=== PATIENT | female | born 1950 | race Caucasian/White ===

== ENCOUNTER 2016-09-22 16:50 | Observation (INO) | payer BC ==
--- NOTE | 2016-09-22 17:01 | PCM.HP ---
H&P History of Present Illness - General Date of Service: 09/22/16 Source of Information: Patient, Family, Provider, RN - History of Present Illness Initial Comments - Free Text/Narative: I received a call from , her primary care physician today regarding this patient. She was noted in the clinic to have a hemoglobin of 6.8 g. She was symptomatic in that she felt weak tired, has a headache, and feels slightly dyspneic. She said when she woke up this morning she had some slight numbness in her left arm the resolved after several hours. An EKG was done in the office today which was read as normal. She has had black stools but always has black stools as she takes iron. Her physician advised me that the patient has an elevated reticulocyte count a low iron level and B12 and folate levels are pending. She has a prior history of gastrointestinal bleeding 2 months ago. At that time she had upper and lower endoscopy by . She has been on omeprazole 20 mg per day. had planned to do an outpatient blood transfusion but called me because the blood will not be available until tomorrow. The patient feels too weak to go home. - Related Data Allergies/Adverse Reactions: Allergies Allergy/AdvReac Type Severity Reaction Status Date / Time Anesthetics - Amide Type Allergy Cardiac Verified 07/02/16 07:48 Arrest hydrochlorothiazide Allergy Hives Verified 07/02/16 07:48 [From Zestoretic] lisinopril Allergy Hives Verified 07/02/16 07:48 methadone [Methadone] Allergy Hives Verified 07/02/16 07:48 propoxyphene Allergy Hives Verified 07/02/16 07:48 Breads Allergy Hives Uncoded 07/02/16 07:48 FRUITS except peaches & Allergy Hives Uncoded 07/02/16 07:48 grapes Leafy vegetables (all) Allergy Hives Uncoded 07/02/16 07:48 Soil Allergy Hives Uncoded 07/02/16 07:48 Trees Allergy Hives Uncoded 07/02/16 07:48 Home Medications: Home Meds Beclomethasone Dipropionate [Qvar] 8.7 gm IH BID 07/02/16 [History] Chlorthalidone 0.5 tab PO DAILY 07/02/16 [History] Levothyroxine [Synthroid] 50 mcg PO ACBREAKFAST 07/02/16 [History] atorvaSTATin [Lipitor] 40 mg PO BEDTIME 07/02/16 [History] traMADol [Ultram] 50 mg PO Q6H PRN 07/02/16 [History] Albuterol [Ventolin HFA] 1 - 2 puff INH ASDIRECTED PRN 07/12/16 [History] Mometasone Furoate [Nasonex] 1 spray NASBOTH DAILY 07/13/16 [History] Omeprazole 20 mg PO DAILY 07/13/16 [History] Past Medical History - Past Health History Medical/Surgical History: Denies Medical/Surgical History HEENT History: Reports: Hard of hearing Other HEENT History: wears glasses, has top & bottom denture, Cardiovascular History: Reports: Hypertension. 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 She is currently under the care of an calibration checker and is on an ongoing program of desensitization therapy) Oncologic (Cancer) History: Reports: Other (see below) Other Oncologic History: skin cancer Dermatologic History: Reports: Eczema Other Dermatologic History: skin cancer - Infectious Disease History Infectious Disease History: Reports: Chicken pox, Measles, Mumps - Past Surgical History HEENT Surgical History: Reports: Tonsillectomy Other HEENT Surgeries/Procedures: PLastic surgery on nose Respiratory Surgical History: Reports: None GI Surgical History: Reports: Appendectomy, Colonoscopy, EGD, Other (see below) Other GI Surgeries/Procedures: "they say my insides look like hamburger" Female Surgical History: Reports: D&C Social & Family History - Family History Family Medical History: Noncontributory - Tobacco Use Smoking Status *Q: Former Smoker (quit 4 years ago) Years of Tobacco use: 40 Packs/Tins Daily: 1 Used Tobacco, but Quit: Yes Month Tobacco Last Used: quit smoking 4 yrs ago Second Hand Smoke Exposure: No - Caffeine Use Caffeine Use: Reports: Coffee, Soda - Alcohol Use Days Per Week of Alcohol Use: 0 Alcohol Use Comment: Rare alcohol use. Last drink was more than 2 weeks ago. - Recreational Drug Use Recreational Drug Use: No Drug Use in Last 12 Months: No H&P Review of Systems - Review of Systems: Review Of Systems: See Below General: Denies: fever HEENT: Reports: headaches (Chronic) Pulmonary: Reports: Shortness of Breath. Denies: Cough, Sputum Cardiovascular: Denies: chest pain Gastrointestinal: Reports: Abdominal pain (Mild epigastric pain), Black stool. Denies: Bloody stool, Hematochezia, Vomiting Genitourinary: Denies: dysuria, frequency, burning, hematuria Musculoskeletal: Reports: arm pain Skin: Reports: other (She has been pale). Denies: jaundice ( as per history of present illness) Psychiatric: Denies: confusion, depression Exam - Exam Exam: See Below - Vital Signs Weight: 93 kg - Exam General: alert, oriented HEENT: EOMI, Other (Pale conjunctiva) Lungs: Clear to auscultation, Normal respiratory effort Cardiovascular: regular rate, regular rhythm Abdomen: soft, tenderness (Mild epigastric) Rectal (Female) Exam: Deferred Neurological: cranial nerves intact, normal speech Neuro Extensive - Mental Status: alert Neuro Extensive - Motor, Sensory, Reflexes: CN II-XII intact. No: facial palsy (L), facial palsy (R) *Q Meaningful Use (ADM) - VTE *Q VTE Criteria *Q: - Stroke *Q Stroke Criteria *Q: - AMI *Q AMI Criteria *Q: - Problem List (1) Anemia SNOMED Code(s): 858117734 ICD Code: D64.9 - ANEMIA, UNSPECIFIED Status: Acute Current Visit: No Qualifiers: Anemia type: other cause Other causes of anemia: other cause, not classified Qualified Code(s): D64.89 - Other specified anemias (2) Hx of gastritis SNOMED Code(s): 947346681765155 ICD Code: Z87.19 - PERSONAL HISTORY OF OTHER DISEASES OF THE DIGESTIVE SYSTEM Status: Chronic Current Visit: No Problem List Initiated/Reviewed/Updated: Yes Assessment/Plan Comment:: See orders. I discussed case with who is on-call for general surgery. Dr. Garcia will be available to see the patient if she gets worse over the weekend. He has an appointment to see her on Sunday the
[2016-09-22] MEDS ORDERED: Bisacodyl 5 MG Tab PO PRN (18:53)
[2016-09-22] MEDS ORDERED: Ondansetron 4 MG Tab.DIS PO PRN (18:53)
[2016-09-22] MEDS ORDERED: Temazepam 15 MG Cap PO PRN (18:53)
[2016-09-22] MEDS ORDERED: Acetaminophen 325 MG Tab PO PRN (18:53)
[2016-09-22] MEDS ORDERED: Sodium Chloride 0.9% 10 ML Syringe FLUSH PRN (18:53)
[2016-09-22] MEDS ORDERED: Sodium Chloride 0.9% 2.5 ML Syringe FLUSH PRN (18:53)
[2016-09-22] MEDS ORDERED: Albuterol 8 GM Inhaler INH PRN (19:00)
[2016-09-22] MEDS ORDERED: Furosemide 40 MG/4 ML VIAL IVPUSH PRN (19:01)
[2016-09-22] MEDS ORDERED: Ketorolac 30 MG/ML SDV IVPUSH PRN (19:14)
[2016-09-22] MEDS ORDERED: Acetaminophen 325 MG/10.15 ML ML PO PRN (19:16)
[2016-09-22 20:11] LABS: CHLORIDE,CL 99 mmol/L (98-110); SODIUM,NA 132 mmol/L (136-146)
[2016-09-22] MEDS: Sucralfate Suspension 1 GM/10 ML Cup PO SCH (20:25)
[2016-09-23] MEDS ORDERED: Potassium Chloride 20 MEQ Tab.ER PO ONE (05:25)
[2016-09-23] MEDS: Sucralfate Suspension 1 GM/10 ML Cup PO SCH ×2 (06:30→10:59)
[2016-09-23 06:45] LABS: CHLORIDE,CL 107 mmol/L (98-110); SODIUM,NA 140 mmol/L (136-146)
[2016-09-23] MEDS ORDERED: Omeprazole 20 MG Cap.CR PO SCH (07:30)
[2016-09-23] MEDS ORDERED: Levothyroxine 50 MCG Tab PO SCH (07:30)
[2016-09-23] MEDS ORDERED: Mometasone Furoate Nasal Spray 17 GM Canister NASBOTH SCH (09:00)
[2016-09-23] MEDS: BECLOMETHASONE DIPROPIONATE 8.7 GM INH SCH (09:19)
[2016-09-23] MEDS ORDERED: Fluticasone Propionate Nasal Spray 16 GM Bottle NASBOTH SCH (09:25)
[2016-09-23 11:48] VITALS: BP 131/58
--- NOTE | 2016-09-23 13:30 | PCM.DCSUM1 ---
Discharge Summary - Hospital Course Brief History: She was admitted with a hemoglobin of 6.5. She was admitted at the request of for blood transfusion. - Discharge Data Discharge Date: 09/23/16 Discharge Disposition: Home, Self-Care 01 Condition: Good - Discharge Diagnosis/Problem(s) (1) Anemia SNOMED Code(s): 304928635 ICD Code: D64.9 - ANEMIA, UNSPECIFIED Status: Acute Current Visit: No Qualifiers: Anemia type: other cause Other causes of anemia: other cause, not classified Qualified Code(s): D64.89 - Other specified anemias (2) Hx of gastritis SNOMED Code(s): 752648978672267 ICD Code: Z87.19 - PERSONAL HISTORY OF OTHER DISEASES OF THE DIGESTIVE SYSTEM Status: Chronic Current Visit: No - Patient Summary/Data Hospital Course: She was given 2 units of packed red blood cells. Her posttransfusion hemoglobin is 9.2. At discharge she no longer has epigastric abdominal tenderness. Her omeprazole dose was increased to 40 mg twice a day and Carafate solution 1 g a.c. and at bedtime was also added to her regimen. Hemoccult of the stool was positive. She feels better at discharge and feels ready to go home. Dr. Felipe was consulted over the phone. He has an appointment arranged to see the patient on Sunday. - Discharge Plan Home Medications: Home Meds Beclomethasone Dipropionate [Qvar] 8.7 gm IH BID 07/02/16 [History] Levothyroxine [Synthroid] 50 mcg PO ACBREAKFAST 07/02/16 [History] traMADol [Ultram] 50 mg PO Q6H PRN 07/02/16 [History] Albuterol [Ventolin HFA] 1 - 2 puff INH ASDIRECTED PRN 07/12/16 [History] Mometasone Furoate [Nasonex] 1 spray NASBOTH DAILY 07/13/16 [History] Omeprazole 20 mg PO DAILY 07/13/16 [History] Patient Handouts: Anemia, Nonspecific Referrals: Chapito Felipe MD [Physician] - 09/25/16 9:15 am Irina Jean Baptiste MD [Physician] - (Please call [facility] on Sunday morning to set up a hospital follow up appointment within 1 week.) - Patient Data Vitals - Most Recent: Last Vital Signs Temp 98.2 F 09/23/16 11:47 Pulse 87 09/23/16 11:47 Resp 22 H 09/23/16 11:47 BP 131/58 L 09/23/16 11:47 Pulse Ox 96 09/23/16 11:47 Weight - Most Recent: 93 kg I&O - Last 24 hours: Intake & Output 09/22/16 09/23/16 09/23/16 22:59 06:59 14:59 Intake Total 270 1319 Output Total 4750 Balance 270 -4371 Lab Results - Last 24 hrs: Laboratory Results - last 24 hr 09/22/16 09/22/16 09/22/16 Range/Units 11:00 19:39 19:39 WBC 9.62 (4.0-11.0) K/uL RBC 2.78 L (4.30-5.90) M/uL Hgb 6.5 L (12.0-16.0) g/dL Hct 22.4 L (36.0-46.0) % MCV 80.6 (80.0-98.0) fL MCH 23.4 L (27.0-32.0) pg MCHC 29.0 L (31.0-37.0) g/dL RDW Std Deviation 61.2 (28.0-62.0) fl RDW Coeff of Mary 21 H (11.0-15.0) % Plt Count 339 (150-400) K/uL MPV 10.30 (7.40-12.00) fL Neut % (Auto) 73.9 (48.0-80.0) % Lymph % (Auto) 15.8 L (16.0-40.0) % Fajardo % (Auto) 7.9 (0.0-15.0) % Eos % (Auto) 2.0 (0.0-7.0) % Baso % (Auto) 0.4 (0.0-1.5) % Neut # (Auto) 7.1 H (1.4-5.7) K/uL Lymph # (Auto) 1.5 (0.6-2.4) K/uL Fajardo # (Auto) 0.8 (0.0-0.8) K/uL Eos # (Auto) 0.2 (0.0-0.7) K/uL Baso # (Auto) 0.0 (0.0-0.1) K/uL Nucleated RBC % 0.4 /100WBC Nucleated RBCs # 0 K/uL Sodium 132 L (136-146) mmol/L Potassium 3.3 L (3.5-5.1) mmol/L Chloride 99 (98-110) mmol/L Carbon Dioxide 24 (21-31) mmol/L BUN 9 (6.0-23.0) mg/dL Creatinine 0.9 (0.6-1.5) mg/dL Est Cr Clr Drug Dosing 56.82 mL/min Estimated GFR (MDRD) > 60.0 ml/min Glucose 104 (60-110) mg/dL Calcium 8.6 L (8.8-10.8) mg/dL Magnesium 1.4 L (1.5-2.3) mEq/L Total Bilirubin 0.4 (0.1-1.5) mg/dL AST 13 (5-40) IU/L ALT 10 (8-54) IU/L Alkaline Phosphatase 60 (40-150) Total Protein 6.0 (6.0-8.0) g/dL Albumin 3.4 (3.4-4.8) g/dL Globulin 2.6 (2.0-3.5) g/dL Albumin/Globulin Ratio 1.3 (1.3-2.8) Blood Type O POSITIVE Antibody Screen POSITIVE Antibody Identification Anti-c Antigen Typing c Antigen - NEGATIVE Crossmatch See Detail 09/23/16 09/23/16 Range/Units 05:45 05:45 WBC 8.33 (4.0-11.0) K/uL RBC 3.60 L (4.30-5.90) M/uL Hgb 9.2 L (12.0-16.0) g/dL Hct 29.6 L (36.0-46.0) % MCV 82.2 (80.0-98.0) fL MCH 25.6 L (27.0-32.0) pg MCHC 31.1 (31.0-37.0) g/dL RDW Std Deviation 56.1 (28.0-62.0) fl RDW Coeff of Mary 19 H (11.0-15.0) % Plt Count 337 (150-400) K/uL MPV 10.70 (7.40-12.00) fL Neut % (Auto) 67.2 (48.0-80.0) % Lymph % (Auto) 18.6 (16.0-40.0) % F[place]ardo % (Auto) 10.6 (0.0-15.0) % Eos % (Auto) 3.0 (0.0-7.0) % Baso % (Auto) 0.6 (0.0-1.5) % Neut # (Auto) 5.6 (1.4-5.7) K/uL Lymph # (Auto) 1.6 (0.6-2.4) K/uL Fajardo # (Auto) 0.9 H (0.0-0.8) K/uL Eos # (Auto) 0.3 (0.0-0.7) K/uL Baso # (Auto) 0.1 (0.0-0.1) K/uL Nucleated RBC % 0.3 /100WBC Nucleated RBCs # 0 K/uL Sodium 140 (136-146) mmol/L Potassium 3.9 (3.5-5.1) mmol/L Chloride 107 (98-110) mmol/L Carbon Dioxide 24 (21-31) mmol/L BUN 12 (6.0-23.0) mg/dL Creatinine 0.9 (0.6-1.5) mg/dL Est Cr Clr Drug Dosing 56.73 mL/min Estimated GFR (MDRD) > 60.0 ml/min Glucose 99 (60-110) mg/dL Calcium 9.2 (8.8-10.8) mg/dL Magnesium (1.5-2.3) mEq/L Total Bilirubin (0.1-1.5) mg/dL AST (5-40) IU/L ALT (8-54) IU/L Alkaline Phosphatase (40-150) Total Protein (6.0-8.0) g/dL Albumin (3.4-4.8) g/dL Globulin (2.0-3.5) g/dL Albumin/Globulin Ratio (1.3-2.8) Blood Type Antibody Screen Antibody Identification Antigen Typing Crossmatch SAM Results - Last 24 hrs: Microbiology 09/23/16 10:40 Stool Occult Blood (SAM) - Final Stool / Feces - Stool, Formed POSITIVE OCCULT BLOOD Med Orders - Current: Current Medications Acetaminophen (Tylenol) 650 mg PO Q4H PRN PRN Reason: Pain (Mild 1-3)/fever Acetaminophen (Tylenol) 600 mg PO Q4H PRN PRN Reason: Pain Last Admin: 09/22/16 20:24 Dose: 600 mg Albuterol (Ventolin Hfa) 0 gm INH ASDIRECTED PRN PRN Reason: Shortness of Breath Bisacodyl (Dulcolax) 5 mg PO DAILY PRN PRN Reason: Constipation Fluticasone Propionate (Flonase) 0 gm NASBOTH DAILY [facility] Last Admin: 09/23/16 09:28 Dose: 1 spray Furosemide (Lasix) 40 mg IVPUSH Q12H PRN PRN Reason: Other Ketorolac Tromethamine (Toradol) 30 mg IVPUSH Q6H PRN PRN Reason: Pain Levothyroxine Sodium (Synthroid) 50 mcg PO ACBREAKFAST [facility] Last Admin: 09/23/16 06:30 Dose: 50 mcg Omeprazole (Omeprazole) 40 mg PO BIDAC [facility] Last Admin: 09/23/16 06:30 Dose: 40 mg Ondansetron HCl (Zofran Odt) 4 mg PO Q4H PRN PRN Reason: nausea, able to take PO Beclomethasone Dipropionate [Qvar] 8.7 Gm 1 each INH BID [facility] Last Admin: 09/23/16 09:19 Dose: 1 each Sodium Chloride (Saline Flush) 10 ml FLUSH ASDIRECTED PRN PRN Reason: Keep Vein Open Sodium Chloride (Saline Flush) 2.5 ml FLUSH ASDIRECTED PRN PRN Reason: Keep Vein Open Sucralfate (Carafate) 1 gm PO QIDACANDBED [facility] Last Admin: 09/23/16 10:59 Dose: 1 gm Temazepam (Restoril) 15 mg PO BEDTIME PRN PRN Reason: Sleep Discontinued Medications Mometasone Furoate (Nasonex Rolfe) 0 gm NASBOTH DAILY [facility] Last Admin: 09/23/16 09:41 Dose: Not Given Potassium Chloride (Klor-Con M20) 40 meq PO ONETIME ONE Stop: 09/23/16 05:26 Last Admin: 09/23/16 05:33 Dose: 40 meq *Q Meaningful Use (DIS) - VTE *Q VTE Criteria *Q: - Stroke *Q Stroke Criteria *Q: - AMI *Q AMI Criteria *Q:
== END 2016-09-23 13:55 | disposition home or self-care (01) ==
LOC: UNDOADMOB 16:50 → MW.MS 16:50
PROVIDERS: ADMIT Family Medicine; ATTEND Family Medicine
DX: D64.9 Anemia, unspecified (principal); I10 Essential (primary) hypertension; J45.909 Unspecified asthma, uncomplicated; K21.9 Gastro-esophageal reflux disease without esophagitis; E03.9 Hypothyroidism, unspecified; Z87.19 Personal history of other diseases of the digestive system; Z79.51 Long term (current) use of inhaled steroids; Z79.899 Other long term (current) drug therapy; Z88.4 Allergy status to anesthetic agent; Z88.5 Allergy status to narcotic agent; Z88.8 Allergy status to other drugs, medicaments and biological substances; Z91.018 Allergy to other foods; Z91.048 Other nonmedicinal substance allergy status; Z87.891 Personal history of nicotine dependence; Z86.010 Personal history of colon polyps; Z90.49 Acquired absence of other specified parts of digestive tract; Z90.89 Acquired absence of other organs; Z98.890 Other specified postprocedural states
CPT/HCPCS: 36415; 36430; 80048; 80053; 82272; 82607; 82728; 82746; 83550; 83735; 85025; 85027; 85045; 86850; 86870; 86900; 86901; 86902; 86920; 86921; 86922; 93005; A9270; G0378; P9016

== ENCOUNTER → 2016-10-03 | Outpatient (CLI) | payer BC ==
[2016-10-03 15:48] LABS: CHLORIDE,CL 110 mmol/L (98-110); SODIUM,NA 141 mmol/L (136-146)
== END ==
LOC: MW.CHFP 14:58
PROVIDERS: ATTEND Family Medicine
DX: D64.9 Anemia, unspecified (principal); R73.9 Hyperglycemia, unspecified; E87.6 Hypokalemia
CPT/HCPCS: 36415; 80053; 82607; 82728; 82746; 83036; 83550; 85027; 85045

== ENCOUNTER 2018-02-28 14:39 | Emergency (ER) | payer MEDICARE, BC ==
[2018-02-28 14:56] VITALS: BP 153/70
[2018-02-28] MEDS ORDERED: Sodium Chloride 0.9% 2.5 ML Syringe FLUSH PRN (15:02)
[2018-02-28] MEDS ORDERED: Morphine 2 MG/ML Syringe IVPUSH ONE (15:02)
[2018-02-28] MEDS ORDERED: Sodium Chloride 0.9% 10 ML Syringe FLUSH PRN (15:02)
[2018-02-28] MEDS ORDERED: Ondansetron 4 MG/2 ML SDV IVPUSH ONE (15:02)
--- NOTE | 2018-02-28 15:05 | EDM.PDOC ---
ED HPI GENERAL MEDICAL PROBLEM - General Chief Complaint: Back Pain or Injury Stated Complaint: BACK PAIN Time Seen by Provider: 02/28/18 15:03 Source of Information: Reports: Patient History Limitations: Reports: No Limitations - History of Present Illness INITIAL COMMENTS - FREE TEXT/NARRATIVE: HISTORY AND PHYSICAL: []67-year-old female presenting with mid back pain extending down to her hip on the right History of Present Illness: she states she was picking up a safe and felt something pop and went down to her knees and has had pain since Chronic anemia with for which she receives iron transfusions in the cancer [facility] Review of Systems: As per history of present illness and below otherwise all systems reviewed and negative. Past medical history: As per history of present illness and as reviewed below otherwise noncontributory. Surgical history: As per history of present illness and as reviewed below otherwise noncontributory. Social history: No reported history of drug or alcohol abuse. Family history: As per history of present illness and as reviewed below otherwise noncontributory. Physical exam: Alert and oriented female answering questions appropriately in full sentences without any shortness of breath. Skin is warm and dry intact. Patient did walk into the exam room. HEENT: Atraumatic, normocehpalic, pupils reactive, negative for conjunctival pallor or scleral icterus, mucous membranes moist, throat clear, neck supple, nontender, trachea midline. Lungs: Clear to auscultation, breath sounds equal bilaterally, chest non tender. Heart: S1S2, regular, negative for clicks, rubs, or JVD. Abdomen: Soft, nondistended, nontender. Negative for masses or hepatossplenmegaly. Negative for costovertebral tenderness. Pelvis: Stable nontender. Genitourinary: Deferred. Rectal: Deferred Extremities: Atraumatic, negative for cords or calf pain. Neurovascular unremarkable. Neuro: Awake, alert, oriented. Cranial nerves II through XII unremarkable. Cerebellum unremarkable. Motor and sensory unremarkable throughout. Exam nonfocal. Discussed with the patient and her there is no acute fracture there is no change in the vertebral height Diagnostics: []Thoracic spine Chest x-ray Therapeutics: [] Impression: []mid back pain Plan: []discharge hydrocodone for pain tid prn follow up with your primary care provider Return to the ER as directed discussed Definitive disposition and diagnosis as appropriate pending reevaluation and review of above. Onset: Today, Sudden Duration: Hour(s): Location: Reports: Back Quality: Reports: Stabbing Severity: Moderate Improves with: Reports: None Worsens with: Reports: None Associated Symptoms: Reports: No Other Symptoms Lower Back Pain Score (Numeric/FACES): 10 - Related Data Allergies Allergy/AdvReac Type Severity Reaction Status Date / Time Anesthetics - Amide Type Allergy Cardiac Verified 02/28/18 14:58 Arrest apple Allergy Hives Verified 02/28/18 14:58 banana Allergy Hives Verified 02/28/18 14:58 cabbage Allergy Hives Verified 02/28/18 14:58 celery Allergy Hives Verified 02/28/18 14:58 corn Allergy Hives Verified 02/28/18 14:58 egg yolk Allergy Hives Verified 02/28/18 14:58 hydrochlorothiazide Allergy Hives Verified 02/28/18 14:58 [From Zestoretic] lisinopril Allergy Hives Verified 02/28/18 14:58 methadone [Methadone] Allergy Hives Verified 02/28/18 14:58 milk Allergy Hives Verified 02/28/18 14:58 oats Allergy Hives Verified 02/28/18 14:58 peanut Allergy Hives Verified 02/28/18 14:58 propoxyphene Allergy Hives Verified 02/28/18 14:58 tomato Allergy Hives Verified 02/28/18 14:58 walnut Allergy Hives Verified 02/28/18 14:58 wheat Allergy Hives Verified 02/28/18 14:58 Breads Allergy Hives Uncoded 02/28/18 14:58 FRUITS except peaches & Allergy Hives Uncoded 02/28/18 14:58 grapes Leafy vegetables (all) Allergy Hives Uncoded 02/28/18 14:58 Soil Allergy Hives Uncoded 02/28/18 14:58 Trees Allergy Hives Uncoded 02/28/18 14:58 Home Meds: Home Meds Levothyroxine [Synthroid] 50 mcg PO ACBREAKFAST 07/02/16 [History] Albuterol [Ventolin HFA] 1 - 2 puff INH ASDIRECTED PRN 07/12/16 [History] Omeprazole 40 mg PO BID #120 tablet. 09/23/16 [Rx] Budesonide/Formoterol [Symbicort 160-4.5 MCG] 2 puff INH BID 02/28/18 [History] Fluticasone Propionate [Flonase] 2 spray LOUISE DAILY 02/28/18 [History] Hydrocodone/Acetaminophen [Hydrocodon-Acetaminophen 5-325] 1 each PO TID #10 tablet 02/28/18 [Rx] Past Medical History - Past Health History Medical/Surgical History: Denies Medical/Surgical History HEENT History: Reports: Hard of Hearing Other HEENT History: wears glasses, has top & bottom denture, Cardiovascular History: Reports: Hypertension Respiratory History: Reports: Asthma Other Respiratory History: former smoker, quit smoking 4 yrs ago Gastrointestinal History: Reports: Colon Polyp, Gastritis, GERD, GI Bleed Genitourinary History: Reports: None 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: Musculoskeletal History: Reports: Fracture, Other (See Below) Other Musculoskeletal History: R Ankle Fracture 2011, sciatica Neurological History: Reports: Migraines, Other (See Below) Other Neuro History: recent headaches Psychiatric History: Reports: None Endocrine/Metabolic History: Reports: Hypothyroidism Hematologic History: Reports: Anemia Other Hematologic History: blood transfusion 07/02/16 2 units, hemoglobin level was 7.7 Immunologic History: Reports: Other (See Below) Other Immunologic History: multiple food allergies/environmental allergies and drug allergies Oncologic (Cancer) History: Reports: Other (See Below) Other Oncologic History: skin cancer Dermatologic History: Reports: Eczema Other Dermatologic History: skin cancer - Infectious Disease History Infectious Disease History: Reports: Chicken Pox, Measles, Mumps - Past Surgical History Head Surgeries/Procedures: Reports: None HEENT Surgical History: Reports: Tonsillectomy Other HEENT Surgeries/Procedures: PLastic surgery on nose Cardiovascular Surgical History: Reports: None Respiratory Surgical History: Reports: None GI Surgical History: Reports: Appendectomy, Colonoscopy, EGD, Other (See Below) Other GI Surgeries/Procedures: "they say my insides look like hamburger" Female Surgical History: Reports: D&C Endocrine Surgical History: Reports: None Neurological Surgical History: Reports: None Oncologic Surgical History: Reports: None Dermatological Surgical History: Reports: Skin Biopsy Social & Family History - Family History Family Medical History: Noncontributory HEENT: Reports: None Cardiac: Reports: None Respiratory: Reports: None GI: Reports: None : Reports: None OBGYN: Reports: None Musculoskeletal: Reports: None Neurological: Reports: None Psychiatric: Reports: None Endocrine/Metabolic: Reports: None Hematologic: Reports: None Immunologic: Reports: None Dermatologic: Reports: None Oncologic: Reports: None - Caffeine Use Caffeine Use: Reports: Coffee, Soda ED ROS GENERAL - Review of Systems Review Of Systems: ROS reveals no pertinent complaints other than HPI. ED EXAM, UPPER BACK/NECK PAIN - Physical Exam Exam: See Below (see dictation) Course - Vital Signs Last Recorded V/S: Last Vital Signs Temp 36.3 C 02/28/18 14:53 Pulse 92 02/28/18 14:53 Resp 20 02/28/18 14:53 BP 153/70 H 02/28/18 14:53 Pulse Ox 94 L 02/28/18 14:53 - Orders/Labs/Meds Orders: Active Orders 24 hr Category Date Time Status Sodium Chloride 0.9% [Saline Flush] Med 02/28/18 15:02 Active 10 ml FLUSH ASDIRECTED PRN Sodium Chloride 0.9% [Saline Flush] Med 02/28/18 15:02 Active 2.5 ml FLUSH ASDIRECTED PRN Saline Lock Insert [OM.PC] Stat Oth 02/28/18 15:02 Ordered Medication Orders Sodium Chloride (Saline Flush) 10 ml FLUSH ASDIRECTED PRN PRN Reason: Keep Vein Open Last Admin: 02/28/18 15:20 Dose: 10 ml Sodium Chloride (Saline Flush) 2.5 ml FLUSH ASDIRECTED PRN PRN Reason: Keep Vein Open Last Admin: 02/28/18 15:20 Dose: 2.5 ml Meds: Medications Generic Name Dose Route Start Last Admin Trade Name Freq PRN Reason Stop Dose Admin Sodium Chloride 10 ml 02/28/18 15:02 02/28/18 15:20 Saline Flush FLUSH 10 ml ASDIRECTED PRN Administration Keep Vein Open Sodium Chloride 2.5 ml 02/28/18 15:02 02/28/18 15:20 Saline Flush FLUSH 2.5 ml ASDIRECTED PRN Administration Keep Vein Open Discontinued Medications Generic Name Dose Route Start Last Admin Trade Name Freq PRN Reason Stop Dose Admin Morphine Sulfate 2 mg 02/28/18 15:02 02/28/18 15:20 Morphine IVPUSH 02/28/18 15:03 2 mg ONETIME ONE Administration Ondansetron HCl 4 mg 02/28/18 15:02 02/28/18 15:20 Zofran IVPUSH 02/28/18 15:03 4 mg ONETIME ONE Administration Departure - Departure Time of Disposition: 16:38 Disposition: Home, Self-Care 01 Condition: Good Clinical Impression: Back pain Qualifiers: Back pain location: thoracic back pain Chronicity: acute Back pain laterality: midline Qualified Code(s): M54.6 - Pain in thoracic spine - Discharge Information *PRESCRIPTION DRUG MONITORING PROGRAM REVIEWED*: Yes *COPY OF PRESCRIPTION DRUG MONITORING REPORT IN PATIENT TRACY: Not Applicable Prescriptions: Hydrocodone/Acetaminophen [Hydrocodon-Acetaminophen 5-325] 1 each PO TID #10 tablet Referrals: PCP,None [Primary Care Provider] - Forms: ED Department Discharge Additional Instructions: The following information is given to patients seen in the emergency department who are being discharged to home. This information is to outline your options for follow-up care. We provide all patients seen in our emergency department with a follow-up referral. The need for follow-up, as well as the timing and circumstances, are variable depending upon the specifics of your emergency department visit. If you don't have a primary care physician on staff, we will provide you with a referral. We always advise you to contact your personal physician following an emergency department visit to inform them of the circumstance of the visit and for follow-up with them and/or the need for any referrals to a consulting specialist. The emergency department will also refer you to a specialist when appropriate. This referral assures that you have the opportunity for followup care with a specialist. All of these measure are taken in an effort to provide you with optimal care, which includes your followup. Under all circumstances we always encourage you to contact your private physician who remains a resource for coordinating your care. When calling for followup care, please make the office aware that this follow-up is from your recent emergency room visit. If for any reason you are refused follow-up, please contact the [facility] emergency department at and asked to speak to the emergency department charge nurse. discharge hydrocodone for pain tid prn follow up with your primary care provider call tomorrow to obtain an appointment for Sunday03/04/2018 Return to the ER as directed discussed - My Orders Last 24 Hours: My Active Orders 02/28/18 15:02 Sodium Chloride 0.9% [Saline Flush] 10 ml FLUSH ASDIRECTED PRN Sodium Chloride 0.9% [Saline Flush] 2.5 ml FLUSH ASDIRECTED PRN Saline Lock Insert [OM.PC] Stat - Assessment/Plan Last 24 Hours: My Active Orders 02/28/18 15:02 Sodium Chloride 0.9% [Saline Flush] 10 ml FLUSH ASDIRECTED PRN Sodium Chloride 0.9% [Saline Flush] 2.5 ml FLUSH ASDIRECTED PRN Saline Lock Insert [OM.PC] Stat
--- NOTE | 2018-02-28 15:45 | CR ---
EXAMINATION: Two-view chest (PA and Lateral views). HISTORY: Shortness of breath. FINDINGS: The trachea is midline. The cardiomediastinal silhouette is within normal limits. No pulmonary infilt rates, effusions or pneumothorax. Osseous structures appear unremarkable. IMPRESSION: No acute cardiopulmonary process.
--- NOTE | 2018-02-28 15:49 | CR ---
EXAMINATION: Thoracic spine HISTORY: Pain COMPARISON: None TECHNIQUE: AP and lateral views FINDINGS: There is a trace Curvature of the thoracic spine. Vertebral body heights and disc spaces appear well-maintained. There is no fracture or acute osseous abnormality. Bone mineralization is normal. IMPRESSION: No acute osseous abnormality identified.
== END 2018-02-28 17:05 | disposition home or self-care (01) ==
LOC: MW.ED 14:39
DX: M54.6 Pain in thoracic spine (principal); I10 Essential (primary) hypertension; E03.9 Hypothyroidism, unspecified; Z79.899 Other long term (current) drug therapy; Z91.018 Allergy to other foods; Z91.011 Allergy to milk products; Z91.010 Allergy to peanuts; Z91.09 Other allergy status, other than to drugs and biological substances; Z88.8 Allergy status to other drugs, medicaments and biological substances; Z88.4 Allergy status to anesthetic agent
CPT/HCPCS: 71046; 72070; 96374; 96375; 99283; J2270; J2405

== ENCOUNTER 2020-02-18 09:04 | Day surgery (SDC) | payer MEDICARE, BC ==
[~2020-02-18 09:04] MED LIST: Lactated Ringers 1,000 ML IV SCH
[2020-02-18] MEDS ORDERED: Midazolam 1 MG/ML 2 ML SDV ONE (09:59)
[2020-02-18] MEDS ORDERED: Propofol 200 MG/20 ML SDV ONE ×3 (09:59→11:41)
[2020-02-18] MEDS ORDERED: fentaNYL 100 MCG/2 ML SDV ONE (09:59)
--- NOTE | 2020-02-18 10:06 | PCM.PREANE ---
Preanesthetic Assessment - Anesthesia/Transfusion/Family Hx Anesthesia History: Prior Anesthesia Without Reaction Other Type of Anesthesia Reaction Comment: family hx of anectine allergy, states have had proprofol without problems Family History of Anesthesia Reaction: No Transfusion History: Prior Transfusion Without Reaction Type of Transfusion Reactions: Reports: Other (see below) Intubation History: Unknown - Review of Systems General: No Symptoms Pulmonary: No Symptoms Cardiovascular: No Symptoms Gastrointestinal: No Symptoms, Other (multiple polyps '17) Neurological: No Symptoms Other: Reports: None - Physical Assessment Vital Signs: Last Vital Signs Temp 36.1 C 02/18/20 09:51 Pulse 91 02/18/20 09:51 Resp 18 02/18/20 09:51 BP 110/52 L 02/18/20 09:51 Pulse Ox 95 02/18/20 09:51 Height: 5 ft 5 in Weight: 96.162 kg ASA Class: 3 Mental Status: Alert & Oriented x3 Airway Class: Mallampati = 3 Dentition: Reports: Dentures (2 teeth in lower jaw as 'holders') Thyro-Mental Finger Breadths: 3 Mouth Opening Finger Breadths: 2 (small mouth) ROM/Head Extension: Limited/Partial Lungs: Clear to Auscultation, Normal Respiratory Effort Cardiovascular: Regular Rate, Regular Rhythm - Allergies Allergies/Adverse Reactions: Allergies Allergy/AdvReac Type Severity Reaction Status Date / Time Anesthetics - Amide Type Allergy Cardiac Verified 02/28/18 14:58 Arrest apple Allergy Itching Verified 02/12/20 10:28 banana Allergy Itching Verified 02/12/20 10:28 cabbage Allergy Itching Verified 02/12/20 10:28 celery Allergy Itching Verified 02/12/20 10:28 corn Allergy Itching Verified 02/12/20 10:28 egg yolk Allergy Itching Verified 02/12/20 10:28 hydrochlorothiazide Allergy Itching Verified 02/18/20 09:48 [From Zestoretic] lisinopril Allergy Itching Verified 02/18/20 09:48 methadone [Methadone] Allergy Itching Verified 02/18/20 09:48 milk Allergy Itching Verified 02/12/20 10:28 oats Allergy Itching Verified 02/12/20 10:28 peanut Allergy Itching Verified 02/12/20 10:28 propoxyphene Allergy Itching Verified 02/18/20 09:48 succinylcholine Allergy "family Verified 02/18/20 09:48 [From Anectine] allergy" tomato Allergy Itching Verified 02/12/20 10:28 walnut Allergy Itching Verified 02/12/20 10:28 wheat Allergy Itching Verified 02/12/20 10:28 Breads Allergy Itching Uncoded 02/12/20 10:28 FRUITS except peaches & Allergy Itching Uncoded 02/12/20 10:28 grapes Leafy vegetables (all) Allergy Itching Uncoded 02/12/20 10:28 Soil Allergy Itching Uncoded 02/12/20 10:28 Trees Allergy Itching Uncoded 02/12/20 10:40 - Blood Blood Available: No - Anesthesia Plan Pre-Op Medication Ordered: None - Acknowledgements Anesthesia Type Planned: MAC Pt an Appropriate Candidate for the Planned Anesthesia: Yes Alternatives and Risks of Anesthesia Discussed w Pt/Guardian: Yes Pt/Guardian Understands and Agrees with Anesthesia Plan: Yes PreAnesthesia Questionnaire - Past Health History Medical/Surgical History: Denies Medical/Surgical History HEENT History: Reports: Hard of Hearing Other HEENT History: wears glasses, has top & bottom denture, hearing aids, dental implants Cardiovascular History: Reports: High Cholesterol, Hypertension Respiratory History: Reports: Asthma (mild) Other Respiratory History: former smoker, quit smoking 7 yrs ago Gastrointestinal History: Reports: Colon Polyp, Gastritis, GERD, GI Bleed Other Gastrointestinal History: GAVE, "watermelon gastritis" Genitourinary History: Reports: None 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: Musculoskeletal History: Reports: Fracture, Other (See Below) Other Musculoskeletal History: R Ankle Fracture 2012, sciatica Neurological History: Reports: Migraines, Other (See Below) Other Neuro History: migraines in the past Psychiatric History: Reports: None Endocrine/Metabolic History: Reports: Hypothyroidism, Obesity/BMI 30+ (BMI 35.3), Osteopenia Hematologic History: Reports: Anemia, Blood Transfusion(s) Immunologic History: Reports: Other (See Below) Other Immunologic History: multiple food allergies/environmental allergies and drug allergies Oncologic (Cancer) History: Reports: Basal Cell Carcinoma, Other (See Below) Other Oncologic History: skin cancer Dermatologic History: Reports: Eczema Other Dermatologic History: skin cancer - Infectious Disease History Infectious Disease History: Reports: Chicken Pox, Measles, Mumps - Past Surgical History Head Surgeries/Procedures: Reports: None HEENT Surgical History: Reports: Adenoidectomy, Cataract Surgery, Tonsillectomy Cardiovascular Surgical History: Reports: None Respiratory Surgical History: Reports: None GI Surgical History: Reports: Appendectomy, Colonoscopy, EGD, Other (See Below) Other GI Surgeries/Procedures: EGD x8 Female Surgical History: Reports: D&C, Tubal Ligation Endocrine Surgical History: Reports: None Neurological Surgical History: Reports: None Musculoskeletal Surgical History: Reports: None Oncologic Surgical History: Reports: None Dermatological Surgical History: Reports: Skin Biopsy - SUBSTANCE USE Smoking Status *Q: Former Smoker Tobacco Use Within Last Twelve Months: No Recreational Drug Use History: No - HOME MEDS Home Medications: Home Meds Levothyroxine [Synthroid] 50 mcg PO ACBREAKFAST 07/02/16 [History] Albuterol [Ventolin HFA] 1 - 2 puff INH ASDIRECTED PRN 07/12/16 [History] Budesonide/Formoterol [Symbicort 160-4.5 MCG] 2 puff INH BID 02/28/18 [History] Brimonidine Tartrate [Brimonidine Tartrate 0.2% Ophth Soln] 1 drop EYEBOTH BID 02/12/20 [History] Carboxymethylcellulos/Glycerin [Refresh Optive Eye Drops] 1 - 2 drop EYEBOTH ASDIRECTED PRN 02/12/20 [History] Latanoprost/Pf [Latanoprost 0.005% Eye Drop] 1 drop EYEBOTH DAILY 02/12/20 [History] Losartan Potassium 25 mg PO DAILY 02/12/20 [History] Mometasone Furoate [Nasonex] 2 spray NASBOTH DAILY 02/12/20 [History] Omeprazole 40 mg PO BEDTIME 02/12/20 [History] Tiotropium Adams [Spiriva Respimat] 2 puff INH DAILY 02/12/20 [History] - CURRENT (IN HOUSE) MEDS Current Meds: Current Medications Lactated Ringer's (Ringers, Lactated) 1,000 mls @ 125 mls/hr IV ASDIRECTED HARJEET Last Admin: 02/18/20 09:47 Dose: 125 mls/hr Documented by: Discontinued Medications Fentanyl (Sublimaze) Confirm Administered Dose 100 mcg .ROUTE .STK-MED ONE Stop: 02/18/20 10:00 Midazolam HCl (Versed 1 Mg/Ml) Confirm Administered Dose 2 mg .ROUTE .STK-MED ONE Stop: 02/18/20 10:00 Propofol (Diprivan 20 Ml) Confirm Administered Dose 200 mg .ROUTE .STK-MED ONE Stop: 02/18/20 10:00
--- NOTE | 2020-02-18 12:01 | PCM.OPNOTE ---
- General Post-Op/Procedure Note Date of Surgery/Procedure: 02/18/20 Operative Procedure(s): colonoscopy w snare polypectomy Findings: see [id number] Pre Op Diagnosis: polyp history Post-Op Diagnosis: colon polyp Anesthesia Technique: Moderate Sedation Primary Surgeon: Chapito Felipe Pathology: polyps Complications: None Condition: Good
[2020-02-18 12:26] VITALS: BP 95/41; PULSE 82
--- NOTE | 2020-02-18 12:36 | PCM.POSTAN ---
POST ANESTHESIA ASSESSMENT - MENTAL STATUS Mental Status: Alert, Oriented - VITAL SIGNS Vital Signs: Last Vital Signs Temp 36.2 C 02/18/20 12:19 Pulse 82 02/18/20 12:19 Resp 16 02/18/20 12:19 BP 95/41 L 02/18/20 12:19 Pulse Ox 95 02/18/20 12:19 - RESPIRATORY Respiratory Status: Respiratory Rate WNL, Airway Patent, O2 Saturation Stable - CARDIOVASCULAR CV Status: Pulse Rate WNL, Blood Pressure Stable - GASTROINTESTINAL GI Status: No Symptoms - PAIN Pain Score: 0 - POST OP HYDRATION Hydration Status: Adequate & Stable - OBSERVATIONS Free Text/Narrative:: No anesthesia problems
--- NOTE | 2020-02-18 12:50 | PCM48HPAN ---
Post Anesthesia Note - EVALUATION WITHIN 48HRS OF ANESTHETIC Vital Signs in Normal Range: Yes Patient Participated in Evaluation: Yes Respiratory Function Stable: Yes Airway Patent: Yes Cardiovascular Function Stable: Yes Hydration Status Stable: Yes Pain Control Satisfactory: Yes Nausea and Vomiting Control Satisfactory: Yes Mental Status Recovered: Yes Vital Signs: Last Vital Signs Temp 36.2 C 02/18/20 12:19 Pulse 82 02/18/20 12:19 Resp 16 02/18/20 12:19 BP 95/41 L 02/18/20 12:19 Pulse Ox 95 02/18/20 12:19 - COMMENTS/OBSERVATIONS Free Text/Narrative:: No anesthesia problems
--- NOTE | 2020-02-18 19:20 | OR ---
SURGEON: Chapito Felipe MD DATE OF PROCEDURE: 02/18/2020 PREOPERATIVE DIAGNOSIS: Colon polyp history. POSTOPERATIVE DIAGNOSIS: Colon polyp. PROCEDURE PERFORMED: Colonoscopy with snare polypectomy. DESCRIPTION OF PROCEDURE: The patient was taken to the endoscopy room. A time out was called, patient identified, and procedure identified. Diprivan was then administrated. Patient went from awake to sleep, hearing doctor talking or door closing is normal. Perineum inspection and digital examination were then performed. A well- lubricated colonoscope was gently inserted through the rectum, advanced past the rectosigmoid junction, the descending colon, splenic flexure, transverse colon, hepatic flexure, ascending colon, arrived to the cecum. Cecum was identified as dictated in the finding. Then the scope was carefully withdrawn while attention was paid to the mucosal surface for any abnormality. Air will be sucked out during the scope withdrawal. At the rectum, retroflexed to examine any rectal diseases, fistula or hemorrhoids. During mucosal examination, abnormality or polyp encountered. Using snare equipment, the abnormality or the polyp was then snared off using electrocautery. The Patient tolerated procedure well. There were no intraoperative complications, and Dr. Felipe was present throughout the whole procedure. FINDINGS: 1. The patient is easily sedated with [employer]CR[employer] and Diprivan, the patient is soundly snoring. 2. Bowel prep is average and above average. There is some liquid stool and no semi-formed stool or stool ball. 3. The patient's colon is rather straightforward and cecum indicated by ileocecal fold, one-to-one indentation, appendiceal orifice. ScopeGuide is pointing south. Mucosa examined upon scope pulling back. The patient has several small polyps at distance 90 when scope go in, cold biopsy, and 70 when scope come out, cold biopsy. A 5 mm sessile polyp at distance 25 when scope come out and snare polypectomy. On this, the patient also has a little bit of like a spider angioma or vascular prominence at 25 when scope went in, that was biopsied. Other than that, no other disease. No diverticulosis, other growth, mass, inflammation, stricture, ulceration, AV malformation, none of those. The patient has some internal hemorrhoids. The patient would benefit from repeat colonoscopy in 3 years from today or depends on the pathology of the polyp or clinically indicated otherwise. JUAN JOSÉ / ALYSON /[id number]
== END 2020-02-18 12:34 | disposition home or self-care (01) ==
LOC: MW.SDS 09:04
PROVIDERS: ATTEND Surgery
DX: Z12.11 Encounter for screening for malignant neoplasm of colon (principal); K64.8 Other hemorrhoids; D12.6 Benign neoplasm of colon, unspecified; J45.909 Unspecified asthma, uncomplicated; Z98.890 Other specified postprocedural states; E78.00 Pure hypercholesterolemia, unspecified; I10 Essential (primary) hypertension; E78.5 Hyperlipidemia, unspecified; E03.9 Hypothyroidism, unspecified; Z88.8 Allergy status to other drugs, medicaments and biological substances; Z86.010 Personal history of colon polyps; Z79.899 Other long term (current) drug therapy; Z90.49 Acquired absence of other specified parts of digestive tract; Z87.891 Personal history of nicotine dependence; Z91.012 Allergy to eggs; Z91.011 Allergy to milk products; Z91.018 Allergy to other foods; Z91.010 Allergy to peanuts
CPT/HCPCS: 00812; 88305; J2250; J2704; J3010; J7120

== ENCOUNTER 2021-02-04 08:19 | Day surgery (SDC) | payer MEDICARE, BC ==
[~2021-02-04 08:19] MED LIST changes: +propofoL 50 ML ONE
--- NOTE | 2021-02-04 08:54 | PCM.PREANE ---
Preanesthetic Assessment - Procedure Proposed Procedure: Colonoscopy - Anesthesia/Transfusion/Family Hx Anesthesia History: Prior Anesthesia Without Reaction Other Type of Anesthesia Reaction Comment: family hx of anectine allergy, states have had proprofol without problems Transfusion History: Prior Transfusion Without Reaction Type of Transfusion Reactions: Reports: Other (see below) Intubation History: Unknown - Review of Systems General: No Symptoms Pulmonary: Other (COPD not on O2) Cardiovascular: No Symptoms (HTN) Gastrointestinal: No Symptoms (h/o polyps, gastritis) Neurological: No Symptoms Other: Reports: Thyroid Problems - Physical Assessment NPO Status Date: 02/02/21 NPO Status Time: 21:00 Vital Signs: Last Vital Signs Temp 97.3 F 02/04/21 08:38 Pulse 100 02/04/21 08:38 Resp 16 02/04/21 08:38 BP 104/62 02/04/21 08:38 Pulse Ox 96 02/04/21 08:38 Height: 5 ft 5 in Weight: 93.894 kg Mental Status: Alert & Oriented x3 Airway Class: Mallampati = 3 Dentition: Reports: Dentures Thyro-Mental Finger Breadths: 3 Mouth Opening Finger Breadths: 3 ROM/Head Extension: Full Lungs: Clear to Auscultation, Normal Respiratory Effort Cardiovascular: Regular Rate, Regular Rhythm - Allergies Allergies/Adverse Reactions: Allergies Allergy/AdvReac Type Severity Reaction Status Date / Time Anesthetics - Amide Type - Allergy Cardiac Verified 01/31/21 12:48 Select A Arrest [Anesthetics - Amide Type] apple Allergy Itching Verified 01/31/21 12:48 banana Allergy Itching Verified 01/31/21 12:48 cabbage Allergy Itching Verified 01/31/21 12:48 celery Allergy Itching Verified 01/31/21 12:48 corn Allergy Itching Verified 01/31/21 12:48 egg yolk Allergy Itching Verified 01/31/21 12:48 hydrochlorothiazide Allergy Itching Verified 01/31/21 12:48 [From Zestoretic] lisinopril Allergy Itching Verified 01/31/21 12:48 methadone [Methadone] Allergy Itching Verified 01/31/21 12:48 milk Allergy Itching Verified 01/31/21 12:48 oats Allergy Itching Verified 01/31/21 12:48 peanut Allergy Itching Verified 01/31/21 12:48 propoxyphene Allergy Itching Verified 01/31/21 12:48 succinylcholine Allergy "family Verified 01/31/21 12:48 [From Anectine] allergy" tomato Allergy Itching Verified 01/31/21 12:48 walnut Allergy Itching Verified 01/31/21 12:48 wheat Allergy Itching Verified 01/31/21 12:48 Breads Allergy Itching Uncoded 02/12/20 10:28 FRUITS except peaches & Allergy Itching Uncoded 02/12/20 10:28 grapes Leafy vegetables (all) Allergy Itching Uncoded 02/12/20 10:28 Soil Allergy Itching Uncoded 02/12/20 10:28 Trees Allergy Itching Uncoded 02/12/20 10:40 - Acknowledgements Anesthesia Type Planned: General Anesthesia Pt an Appropriate Candidate for the Planned Anesthesia: Yes Alternatives and Risks of Anesthesia Discussed w Pt/Guardian: Yes Pt/Guardian Understands and Agrees with Anesthesia Plan: Yes PreAnesthesia Questionnaire - Past Health History Medical/Surgical History: Denies Medical/Surgical History HEENT History: Reports: Hard of Hearing Other HEENT History: wears glasses, has top & bottom denture, hearing aids, dental implants Cardiovascular History: Reports: High Cholesterol, Hypertension Respiratory History: Reports: Asthma, COPD Other Respiratory History: former smoker, quit smoking 7 yrs ago Gastrointestinal History: Reports: Colon Polyp, Gastritis, GERD, GI Bleed Other Gastrointestinal History: GAVE, "watermelon gastritis" Genitourinary History: Reports: None LUG LOADER History: Reports: Musculoskeletal History: Reports: Fracture, Other (See Below) Other Musculoskeletal History: R Ankle Fracture 2011, sciatica Neurological History: Reports: Migraines, Other (See Below) Other Neuro History: migraines in the past Psychiatric History: Reports: None Endocrine/Metabolic History: Reports: Hypothyroidism, Obesity/BMI 30+, Osteopenia Hematologic History: Reports: Anemia, Blood Transfusion(s) Immunologic History: Reports: Other (See Below) Other Immunologic History: multiple food allergies/environmental allergies and drug allergies Oncologic (Cancer) History: Reports: Basal Cell Carcinoma, Other (See Below) Other Oncologic History: skin cancer Dermatologic History: Reports: Eczema Other Dermatologic History: skin cancer - Infectious Disease History Infectious Disease History: Reports: Chicken Pox, Measles, Mumps - Past Surgical History Head Surgeries/Procedures: Reports: None HEENT Surgical History: Reports: Adenoidectomy, Cataract Surgery, Tonsillectomy Cardiovascular Surgical History: Reports: None Respiratory Surgical History: Reports: None GI Surgical History: Reports: Appendectomy, Colonoscopy, EGD, Other (See Below) Other GI Surgeries/Procedures: EGD x8 Female Surgical History: Reports: D&C, Tubal Ligation Endocrine Surgical History: Reports: None Neurological Surgical History: Reports: None Musculoskeletal Surgical History: Reports: None Oncologic Surgical History: Reports: None Dermatological Surgical History: Reports: Skin Biopsy - SUBSTANCE USE Tobacco Use Status *Q: Former Tobacco User Tobacco Use Within Last Twelve Months: No Recreational Drug Use History: No - HOME MEDS Home Medications: Home Meds Levothyroxine [Synthroid] 50 mcg PO ACBREAKFAST 07/02/16 [History] Brimonidine Tartrate [Brimonidine Tartrate 0.2% Ophth Soln] 1 drop EYEBOTH BID 02/12/20 [History] Latanoprost/Pf [Latanoprost 0.005% Eye Drop] 1 drop EYEBOTH BEDTIME 02/12/20 [History] Losartan Potassium 25 mg PO QAM 02/12/20 [History] Omeprazole 40 mg PO BEDTIME 02/12/20 [History] Carboxymethylcellulos/Glycerin [Refresh Optive] 1 - 2 drop EYEBOTH ASDIRECTED PRN 01/31/21 [History] Denosumab [Prolia] 60 mg IV ASDIRECTED 01/31/21 [History] - CURRENT (IN HOUSE) MEDS Current Meds: Current Medications Lactated Ringer's (Ringers, Lactated) 1,000 mls @ 125 mls/hr IV ASDIRECTED [facility] Last Admin: 02/04/21 08:37 Dose: 125 mls/hr Documented by: Discontinued Medications Propofol (Diprivan 50 Ml) Confirm Administered Dose 50 mls @ as directed .ROUTE .STK-MED ONE Stop: 02/04/21 07:25
--- NOTE | 2021-02-04 10:51 | PCM.POSTAN ---
POST ANESTHESIA ASSESSMENT - MENTAL STATUS Mental Status: Alert, Oriented - VITAL SIGNS Vital Signs: Last Vital Signs Temp 97.3 F 02/04/21 08:38 Pulse 100 02/04/21 08:38 Resp 16 02/04/21 08:38 BP 104/62 02/04/21 08:38 Pulse Ox 96 02/04/21 08:38 - RESPIRATORY Respiratory Status: Respiratory Rate WNL, Airway Patent, O2 Saturation Stable - CARDIOVASCULAR CV Status: Pulse Rate WNL, Blood Pressure Stable - GASTROINTESTINAL GI Status: No Symptoms - PAIN Pain Score: 0 - POST OP HYDRATION Hydration Status: Adequate & Stable
--- NOTE | 2021-02-04 10:54 | PCM48HPAN ---
Post Anesthesia Note - EVALUATION WITHIN 48HRS OF ANESTHETIC Vital Signs in Normal Range: Yes Patient Participated in Evaluation: Yes Respiratory Function Stable: Yes Airway Patent: Yes Cardiovascular Function Stable: Yes Hydration Status Stable: Yes Pain Control Satisfactory: Yes Nausea and Vomiting Control Satisfactory: Yes Mental Status Recovered: Yes Vital Signs: Last Vital Signs Temp 97.3 F 02/04/21 08:38 Pulse 100 02/04/21 08:38 Resp 16 02/04/21 08:38 BP 104/62 02/04/21 08:38 Pulse Ox 96 02/04/21 08:38 - COMMENTS/OBSERVATIONS Free Text/Narrative:: Pt doing well post-op. VSS. No apparent anesthetic complications. Dr. Pola Garrett
[2021-02-04 10:57] VITALS: PULSE 71
--- NOTE | 2021-02-04 11:25 | PCM.OPNOTE ---
- General Post-Op/Procedure Note Date of Surgery/Procedure: 02/04/21 Operative Procedure(s): colonoscopy w bx Findings: see [id number] Pre Op Diagnosis: tv polyp hx Post-Op Diagnosis: Same Anesthesia Technique: Moderate Sedation Primary Surgeon: Chapito Felipe Pathology: bx cecum at 120cm and 5mm sessile polyp at 100cm when scope withdrawal Complications: None Condition: Good Free Text/Narrative:: Intake & Output 02/03/21 02/04/21 02/04/21 22:59 06:59 14:59 Intake Total 550 Balance 550
[2021-02-04 11:28] VITALS: BP 90/50
--- NOTE | 2021-02-04 16:16 | OR ---
SURGEON: Chapito Felipe MD DATE OF PROCEDURE: 02/04/2021 PREOPERATIVE DIAGNOSIS: History of tubulovillous polyp at 25 cm. POSTOPERATIVE DIAGNOSIS: History of tubulovillous polyp at 25 cm. PROCEDURE PERFORMED: Colonoscopy with biopsy. DESCRIPTION OF PROCEDURE: The patient was taken to the endoscopy room. A time out was called, patient identified, and procedure identified. Diprivan was then administrated. Patient went from awake to sleep, hearing doctor talking or door closing is normal. Perineum inspection and digital examination were then performed. A well- lubricated colonoscope was gently inserted through the rectum, advanced past the rectosigmoid junction, the descending colon, splenic flexure, transverse colon, hepatic flexure, ascending colon, arrived to the cecum. Cecum was identified as dictated in the finding. Then the scope was carefully withdrawn while attention was paid to the mucosal surface for any abnormality. Air will be sucked out during the scope withdrawal. At the rectum, retroflexed to examine any rectal diseases, fistula or hemorrhoids. During mucosal examination, abnormality or polyp was noted; picture taken and biopsy performed. Patient tolerated procedure well. There were no intraoperative complications, and Dr. Felipe was present throughout the whole procedure. FINDINGS: 1. The patient is easily sedated with HIGH PRESSURE KETTLE OPERATOR and Diprivan. The patient is soundly snoring. 2. Bowel prep is average to above average. Very little liquid stool, no semi- formed stool. 3. Colon rather straightforward. Cecum indicated by ileocecal fold, one-to- one indentation, appendiceal orifice, and ScopeGuide is pointing south. Mucosa examined upon scope pulling out and with some irrigation. The patient has possible polyp at the cecum and/or is due to suction, the area was biopsied. Other than that, the patient has a small tiny 5 mm polyp at distance 120 cm when scope pulling out. I biopsied the cecum and the polyp and removed with cold biopsy forceps. Other than that, the patient does not have other mass, growth, inflammation, stricture, AV malformation, bleeding, or diverticulosis; none of those. The patient has mild internal hemorrhoids and no external hemorrhoids. The patient would benefit from repeat colonoscopy depending on the pathology of the polyp. The previous area at 25 cm where the TV polyp was removed, it is squeaky clean, nothing over there. JUAN JOSÉ / ALYSON /[id number]
== END 2021-02-04 11:26 | disposition home or self-care (01) ==
LOC: MW.SDS 08:19
PROVIDERS: ATTEND Surgery
DX: Z12.11 Encounter for screening for malignant neoplasm of colon (principal); D12.0 Benign neoplasm of cecum; D12.6 Benign neoplasm of colon, unspecified; K57.30 Diverticulosis of large intestine without perforation or abscess without bleeding; K64.8 Other hemorrhoids; D64.9 Anemia, unspecified; J45.909 Unspecified asthma, uncomplicated; E78.00 Pure hypercholesterolemia, unspecified; E03.9 Hypothyroidism, unspecified; I10 Essential (primary) hypertension; M81.0 Age-related osteoporosis without current pathological fracture; Z86.010 Personal history of colon polyps; Z88.8 Allergy status to other drugs, medicaments and biological substances; Z79.890 Hormone replacement therapy
CPT/HCPCS: 45380; 88305; J2704; J7120; 00811

== ENCOUNTER 2022-09-30 12:04 | Inpatient (IN) | payer MEDICARE, BC ==
[2022-09-30] MEDS ORDERED: Albuterol/Ipratropium 3.0-0.5 MG/3 ML Neb Soln ONE (12:06)
[2022-09-30] MEDS ORDERED: methylPREDNISolone Sodium Succinate 125 MG/2 ML SDV IVPUSH ONE (12:16)
[2022-09-30] MEDS ORDERED: Sodium Chloride 0.9% 2.5 ML Syringe FLUSH PRN (12:16)
[2022-09-30] MEDS ORDERED: Sodium Chloride 0.9% 10 ML Syringe FLUSH PRN (12:16)
[2022-09-30 12:26] LABS: BASOPHILS PERCENT AUTO 0.4 % (0.0-1.5); EOSINOPHILS ABSOLUTE AUTO 0.3 K/uL (0.0-0.7); EOSINOPHILS PERCENT AUTO 3.4 % (0.0-7.0); HEMOGLOBIN 7.9 g/dL (12.0-16.0); LYMPHOCYTES ABSOLUTE AUTO 1.5 K/uL (0.6-2.4); LYMPHOCYTES PERCENT AUTO 14.8 % (16.0-40.0); MEAN CORPUSCULAR HEMOGLOBIN 25.7 pg (27.0-32.0); MEAN CORPUSCULAR HGB CONC 30.4 g/dL (31.0-37.0); MEAN CORPUSCULAR VOLUME 84.7 fL (80.0-98.0); MONOCYTES ABSOLUTE AUTO 0.9 K/uL (0.0-0.8); MONOCYTES PERCENT AUTO 8.7 % (0.0-15.0); NEUTROPHILS ABSOLUTE AUTO 7.2 K/uL (1.4-5.7); NEUTROPHILS PERCENT AUTO 72.7 % (48.0-80.0); NRBC ABSOLUTE 0 K/uL; PLATELET COUNT,PLT 416 K/uL (150-400); RED BLOOD CELL COUNT 3.07 M/uL (4.30-5.90); WHITE BLOOD CELL COUNT,WBC 9.83 K/uL (4.0-11.0)
[2022-09-30] MEDS ORDERED: Albuterol/Ipratropium 3.0-0.5 MG/3 ML Neb Soln NEB ONE (12:31)
[2022-09-30 12:47] LABS: ALBUMIN 3.3 g/dL (3.4-5.0); BILIRUBIN TOTAL 0.4 mg/dL (0.2-1.0); CALCIUM 8.3 mg/dL (8.5-10.1); CARBON DIOXIDE,CO2 23.3 mmol/L (21.0-32.0); CREATININE 0.9 mg/dL (0.6-1.0); EST CRCL DRUG DOSING (CG) 52.34 mL/min; POTASSIUM,K 4.1 mmol/L (3.5-5.1); PROTEIN TOTAL,TP 6.7 g/dL (6.4-8.2)
[2022-09-30 13:23] LABS: CORONAVIRUS COVID-19 NAA NEGATIVE (NEGATIVE); INFLUENZA A NAA NEGATIVE (NEGATIVE); INFLUENZA B NAA NEGATIVE (NEGATIVE); RESPIRATORY SYNCYTIAL VIR NAA NEGATIVE (NEGATIVE)
[2022-09-30] MEDS ORDERED: Iopamidol 755 MG/ML 500 ML Multipack Bottle IVPUSH ONE (13:41)
[2022-09-30] MEDS ORDERED: Furosemide 40 MG/4 ML VIAL IVPUSH ONE (14:47)
[2022-09-30] MEDS ORDERED: Ondansetron 4 MG/2 ML SDV IVPUSH PRN (15:02)
[2022-09-30] MEDS ORDERED: Albuterol/Ipratropium 3.0-0.5 MG/3 ML Neb Soln NEB PRN (15:02)
[2022-09-30] MEDS ORDERED: Ondansetron 4 MG Tab.DIS PO PRN (15:02)
[2022-09-30] MEDS ORDERED: Furosemide 100 MG/10 ML SDV IVPUSH SCH ×2 (15:15→16:00)
[2022-09-30] MEDS ORDERED: hydrALAZINE 20 MG/ML SDV IVPUSH PRN (15:45)
[2022-09-30] MEDS: Furosemide 40 MG/4 ML VIAL IVPUSH SCH (16:56)
[2022-09-30] MEDS: Enoxaparin 40 MG/0.4 ML Syringe SUBCUT SCH (16:56)
[2022-09-30] MEDS: Acetaminophen 325 MG Tab PO PRN (18:05)
[2022-09-30] MEDS: Latanoprost 0.005% Ophth Soln 2.5 ML Bottle EYEBOTH SCH (20:32)
[2022-09-30] MEDS: Brimonidine 0.2% Ophth Soln 5 ML Bottle EYEBOTH SCH (20:32)
[2022-09-30] MEDS: Omeprazole 20 MG Cap.CR PO SCH (20:32)
[2022-10-01 05:58] LABS: HEMATOCRIT 24.3 % (36.0-46.0); HEMOGLOBIN 7.3 g/dL (12.0-16.0); LYMPHOCYTES ABSOLUTE AUTO 0.7 K/uL (0.6-2.4); LYMPHOCYTES PERCENT AUTO 18.2 % (16.0-40.0); MEAN CORPUSCULAR HEMOGLOBIN 24.9 pg (27.0-32.0); MEAN CORPUSCULAR VOLUME 82.9 fL (80.0-98.0); MONOCYTES ABSOLUTE AUTO 0.4 K/uL (0.0-0.8); MONOCYTES PERCENT AUTO 10.4 % (0.0-15.0); NEUTROPHILS ABSOLUTE AUTO 2.8 K/uL (1.4-5.7); NEUTROPHILS PERCENT AUTO 71.4 % (48.0-80.0); NRBC ABSOLUTE 0 K/uL; PLATELET COUNT,PLT 374 K/uL (150-400); RED BLOOD CELL COUNT 2.93 M/uL (4.30-5.90); WHITE BLOOD CELL COUNT,WBC 3.85 K/uL (4.0-11.0)
[2022-10-01 06:12] LABS: CALCIUM 8.2 mg/dL (8.5-10.1); CARBON DIOXIDE,CO2 25.3 mmol/L (21.0-32.0); EST CRCL DRUG DOSING (CG) 47.1 mL/min; POTASSIUM,K 4.2 mmol/L (3.5-5.1)
[2022-10-01] MEDS: Levothyroxine 50 MCG Tab PO SCH ×2 (06:12→09:06)
[2022-10-01] MEDS: Losartan 50 MG Tab PO SCH (09:07)
[2022-10-01] MEDS: Furosemide 40 MG/4 ML VIAL IVPUSH SCH (09:08)
[2022-10-01 09:18] LABS: PERCENT FE SATURATION 3.18 % (20-55)
[2022-10-01] MEDS: Brimonidine 0.2% Ophth Soln 5 ML Bottle EYEBOTH SCH ×3 (10:42→20:31)
[2022-10-01] MEDS: Enoxaparin 40 MG/0.4 ML Syringe SUBCUT SCH (16:03)
[2022-10-01] MEDS ORDERED: Melatonin 3 MG Tab PO PRN (16:37)
[2022-10-01] MEDS: Latanoprost 0.005% Ophth Soln 2.5 ML Bottle EYEBOTH SCH (20:31)
[2022-10-01] MEDS: Omeprazole 20 MG Cap.CR PO SCH (20:31)
[2022-10-02] MEDS: Acetaminophen 325 MG Tab PO PRN (03:44)
[2022-10-02 06:07] LABS: BASOPHILS PERCENT AUTO 0.2 % (0.0-1.5); EOSINOPHILS ABSOLUTE AUTO 0.2 K/uL (0.0-0.7); EOSINOPHILS PERCENT AUTO 1.5 % (0.0-7.0); HEMATOCRIT 25.1 % (36.0-46.0); HEMOGLOBIN 7.5 g/dL (12.0-16.0); LYMPHOCYTES ABSOLUTE AUTO 1.4 K/uL (0.6-2.4); LYMPHOCYTES PERCENT AUTO 12.7 % (16.0-40.0); MEAN CORPUSCULAR HEMOGLOBIN 25.3 pg (27.0-32.0); MEAN CORPUSCULAR HGB CONC 29.9 g/dL (31.0-37.0); MEAN CORPUSCULAR VOLUME 84.5 fL (80.0-98.0); MONOCYTES ABSOLUTE AUTO 1.4 K/uL (0.0-0.8); MONOCYTES PERCENT AUTO 12.8 % (0.0-15.0); NEUTROPHILS ABSOLUTE AUTO 7.8 K/uL (1.4-5.7); NEUTROPHILS PERCENT AUTO 72.8 % (48.0-80.0); NRBC ABSOLUTE 0 K/uL; PLATELET COUNT,PLT 437 K/uL (150-400); RED BLOOD CELL COUNT 2.97 M/uL (4.30-5.90); WHITE BLOOD CELL COUNT,WBC 10.64 K/uL (4.0-11.0)
[2022-10-02] MEDS: Levothyroxine 50 MCG Tab PO SCH ×2 (06:16→08:26)
[2022-10-02 06:32] LABS: ALBUMIN 3.3 g/dL (3.4-5.0); BILIRUBIN TOTAL 0.3 mg/dL (0.2-1.0); CALCIUM 8.1 mg/dL (8.5-10.1); CARBON DIOXIDE,CO2 25.5 mmol/L (21.0-32.0); EST CRCL DRUG DOSING (CG) 47.1 mL/min; POTASSIUM,K 3.4 mmol/L (3.5-5.1); PROTEIN TOTAL,TP 6.7 g/dL (6.4-8.2)
[2022-10-02] MEDS ORDERED: Potassium Chloride 20 MEQ Tab.ER PO ONE (06:50)
[2022-10-02] MEDS: Losartan 50 MG Tab PO SCH (08:12)
[2022-10-02 08:17] VITALS: BP 140/61
[2022-10-02 08:41] VITALS: PULSE 64
[2022-10-02] MEDS ORDERED: Furosemide 20 MG Tab PO SCH (09:00)
[2022-10-02] MEDS: Brimonidine 0.2% Ophth Soln 5 ML Bottle EYEBOTH SCH (09:40)
== END 2022-10-02 12:16 | disposition home or self-care (01) | DRG 189 ==
LOC: MW.ED 12:04 → MW.MS 14:58 → UNDOADMIN 15:18 → UNDODISIN 10-02 12:16
PROVIDERS: ADMIT Hospitalist; ATTEND Hospitalist
DX: J96.01 Acute respiratory failure with hypoxia (principal); J81.0 Acute pulmonary edema; I31.39 Other pericardial effusion (noninflammatory); J44.9 Chronic obstructive pulmonary disease, unspecified; I34.0 Nonrheumatic mitral (valve) insufficiency; D50.9 Iron deficiency anemia, unspecified; I11.0 Hypertensive heart disease with heart failure; Z20.822 Contact with and (suspected) exposure to COVID-19; I50.9 Heart failure, unspecified; E87.70 Fluid overload, unspecified; H91.90 Unspecified hearing loss, unspecified ear; H54.7 Unspecified visual loss; E78.00 Pure hypercholesterolemia, unspecified; K21.9 Gastro-esophageal reflux disease without esophagitis; G43.909 Migraine, unspecified, not intractable, without status migrainosus; E66.9 Obesity, unspecified; E03.9 Hypothyroidism, unspecified; H40.9 Unspecified glaucoma; M85.80 Other specified disorders of bone density and structure, unspecified site; Z85.828 Personal history of other malignant neoplasm of skin; Z98.51 Tubal ligation status; Z79.890 Hormone replacement therapy; Z79.899 Other long term (current) drug therapy; Z98.49 Cataract extraction status, unspecified eye; Z87.891 Personal history of nicotine dependence; Z98.890 Other specified postprocedural states; Z86.010 Personal history of colon polyps; Z88.4 Allergy status to anesthetic agent; Z91.012 Allergy to eggs; Z91.011 Allergy to milk products; Z91.010 Allergy to peanuts; Z88.8 Allergy status to other drugs, medicaments and biological substances; Z91.018 Allergy to other foods; Z68.33 Body mass index [BMI] 33.0-33.9, adult
CPT/HCPCS: 0241U; 36415; 71275; 71275-26; 80048; 80053; 82728; 83550; 83880; 84484; 85025; 85379; 93005; 93010; 93306; 94640; 96374; 96375; 99222; 99232; 99239; 99285; 99285-25; A9270-GY; J1650; J1940; J2930; J3490; J7620-GY; Q9967

== ENCOUNTER 2022-10-04 17:50 | Emergency (ER) | payer MEDICARE, BC ==
[2022-10-04] MEDS ORDERED: Sodium Chloride 0.9% 2.5 ML Syringe FLUSH PRN (18:47)
[2022-10-04] MEDS ORDERED: Sodium Chloride 0.9% 10 ML Syringe FLUSH PRN (18:47)
[2022-10-04 19:28] LABS: CARBON DIOXIDE,CO2 23.5 mmol/L (21.0-32.0); POTASSIUM,K 4.2 mmol/L (3.5-5.1)
[2022-10-05 03:52] VITALS: BP 132/74; PULSE 78
== END 2022-10-04 22:41 | disposition home or self-care (01) ==
LOC: MW.ED 17:50
DX: R42 Dizziness and giddiness (principal); D64.9 Anemia, unspecified; I10 Essential (primary) hypertension; J44.9 Chronic obstructive pulmonary disease, unspecified; E03.9 Hypothyroidism, unspecified; E66.9 Obesity, unspecified; Z68.33 Body mass index [BMI] 33.0-33.9, adult; Z87.891 Personal history of nicotine dependence; Z88.4 Allergy status to anesthetic agent; Z91.012 Allergy to eggs; Z91.011 Allergy to milk products; Z91.018 Allergy to other foods; Z88.8 Allergy status to other drugs, medicaments and biological substances; Z79.899 Other long term (current) drug therapy
CPT/HCPCS: 36415; 71045; 71045-26; 80053; 83880; 84484; 85025; 86850; 86900; 86901; 86902; 86920; 86921; 86922; 99284

== ENCOUNTER 2023-01-08 11:38 | Emergency (ER) | payer MEDICARE, BC ==
[2023-01-08] MEDS ORDERED: Sodium Chloride 0.9% 2.5 ML Syringe FLUSH PRN (12:22)
[2023-01-08] MEDS ORDERED: Sodium Chloride 0.9% 10 ML Syringe FLUSH PRN (12:22)
[2023-01-08 12:36] LABS: BASOPHILS PERCENT AUTO 0.4 % (0.0-1.5); EOSINOPHILS ABSOLUTE AUTO 0.3 K/uL (0.0-0.7); EOSINOPHILS PERCENT AUTO 3.4 % (0.0-7.0); HEMATOCRIT 24.1 % (36.0-46.0); HEMOGLOBIN 7.2 g/dL (12.0-16.0); LYMPHOCYTES ABSOLUTE AUTO 1.2 K/uL (0.6-2.4); LYMPHOCYTES PERCENT AUTO 12.2 % (16.0-40.0); MEAN CORPUSCULAR HEMOGLOBIN 29.6 pg (27.0-32.0); MEAN CORPUSCULAR HGB CONC 29.9 g/dL (31.0-37.0); MEAN CORPUSCULAR VOLUME 99.2 fL (80.0-98.0); MONOCYTES ABSOLUTE AUTO 0.9 K/uL (0.0-0.8); MONOCYTES PERCENT AUTO 8.7 % (0.0-15.0); NEUTROPHILS ABSOLUTE AUTO 7.6 K/uL (1.4-5.7); NEUTROPHILS PERCENT AUTO 75.3 % (48.0-80.0); NRBC ABSOLUTE 0 K/uL; NRBC PERCENT 0.6 /100WBC; PLATELET COUNT,PLT 499 K/uL (150-400); RED BLOOD CELL COUNT 2.43 M/uL (4.30-5.90); WHITE BLOOD CELL COUNT,WBC 10.09 K/uL (4.0-11.0)
[2023-01-08 12:43] LABS: INR 1.03 (0.86-1.11)
[2023-01-08 13:09] LABS: ALBUMIN 3.4 g/dL (3.4-5.0); BILIRUBIN TOTAL 0.4 mg/dL (0.2-1.0); CREATININE 0.9 mg/dL (0.6-1.0); EST CRCL DRUG DOSING (CG) 52.34 mL/min; POTASSIUM,K 3.8 mmol/L (3.5-5.1); PROTEIN TOTAL,TP 6.8 g/dL (6.4-8.2)
[2023-01-08 13:12] LABS: APPEARANCE,URINE CLEAR; BILIRUBIN,URINE NEGATIVE (NEGATIVE); GLUCOSE,URINE NEGATIVE (NEGATIVE); KETONES,URINE NEGATIVE (NEGATIVE); LEUKOCYTE ESTERASE,URINE TRACE (NEGATIVE); NITRITE,URINE NEGATIVE (NEGATIVE); OCCULT BLOOD,URINE NEGATIVE (NEGATIVE); PH,URINE 7.5 (5.0-8.0); PROTEIN,URINE NEGATIVE (NEGATIVE); UROBILINOGEN,URINE 0.2 EU/dL (<2.0)
[2023-01-08 13:17] LABS: COLOR,URINE STRAW
[2023-01-08 13:23] LABS: BACTERIA,URINE RARE (NEGATIVE); EPITHELIAL CELLS,URINE RARE (NONE-FEW); RBC,URINE 0-1 (0-2/HPF)
[2023-01-08 21:39] VITALS: BP 147/56; PULSE 90
== END 2023-01-08 21:37 | disposition home or self-care (01) ==
LOC: MW.ED 11:38
DX: D64.9 Anemia, unspecified (principal); I11.0 Hypertensive heart disease with heart failure; I50.9 Heart failure, unspecified; E78.00 Pure hypercholesterolemia, unspecified; K21.9 Gastro-esophageal reflux disease without esophagitis; E03.9 Hypothyroidism, unspecified; Z88.4 Allergy status to anesthetic agent; Z91.012 Allergy to eggs; Z88.8 Allergy status to other drugs, medicaments and biological substances; Z91.011 Allergy to milk products; Z91.018 Allergy to other foods; Z91.048 Other nonmedicinal substance allergy status; Z79.899 Other long term (current) drug therapy; Z90.49 Acquired absence of other specified parts of digestive tract
CPT/HCPCS: 36415; 36430; 71045; 80053; 81001; 83880; 84484; 85025; 85610; 86850; 86900; 86901; 86902; 86920; 86921; 86922; 87086; 93005; 99285; J3490; P9016

== ENCOUNTER 2023-10-19 15:09 | Emergency (ER) | payer MEDICARE, BC ==
[2023-10-19 16:05] LABS: BASOPHILS ABSOLUTE AUTO 0.06 K/uL (0.00-0.20); BASOPHILS PERCENT AUTO 0.6 % (0.0-1.0); EOSINOPHILS ABSOLUTE AUTO 0.19 K/uL (0.00-0.45); HEMATOCRIT 26.3 % (37.0-47.0); HEMOGLOBIN 8.1 g/dL (12.0-16.0); IMMATURE GRAN ABSOLUTE AUTO 0.04 K/uL (0.00-0.05); IMMATURE GRAN PERCENT AUTO 0.4 % (0.0-0.4); LYMPHOCYTES PERCENT AUTO 15.6 % (24.0-44.0); MEAN CORPUSCULAR HEMOGLOBIN 26.7 pg (28.0-32.0); MEAN CORPUSCULAR HGB CONC 30.8 g/dL (32.0-36.0); MEAN CORPUSCULAR VOLUME 86.8 fL (83.0-99.0); MEAN PLATELET VOLUME 10.8 fL (9.4-12.3); MONOCYTES ABSOLUTE AUTO 0.79 K/uL (0.00-0.80); MONOCYTES PERCENT AUTO 8.2 % (0.0-8.0); NEUTROPHILS ABSOLUTE AUTO 7.05 K/uL (1.80-7.70); NEUTROPHILS PERCENT AUTO 73.2 % (41.0-71.0); PLATELET COUNT,PLT 390 K/uL (150-400); RED BLOOD CELL COUNT 3.03 M/uL (4.10-5.30); WHITE BLOOD CELL COUNT,WBC 9.63 K/uL (3.9-11.3)
[2023-10-19 16:26] LABS: INR 1.09 (0.86-1.11); PTT,PARTIAL THROMBOPLSTIN TIME 32.9 SEC (23.9-30.7)
[2023-10-19] MEDS: Albuterol/Ipratropium 3.0-0.5 MG/3 ML Neb Soln NEB STA (16:37)
[2023-10-19] MEDS: Albuterol 0.083% 2.5 MG/3 ML Neb Soln NEB STA (16:45)
[2023-10-19 16:50] LABS: A/G RATIO 0.9 (0.9-1.6); ALBUMIN 3.2 g/dL (3.4-5.0); BILIRUBIN TOTAL 0.4 mg/dL (0.2-1.0); CALCIUM 8.2 mg/dL (8.5-10.1); CARBON DIOXIDE,CO2 23.7 mmol/L (21.0-32.0); CREATININE 0.9 mg/dL (0.6-1.0); EST CRCL DRUG DOSING (CG) 51.59 mL/min; MAGNESIUM 1.9 mg/dL (1.8-2.4); POTASSIUM,K 3.8 mmol/L (3.5-5.1); PROTEIN TOTAL,TP 6.7 g/dL (6.4-8.2)
[2023-10-19 16:58] LABS: PERCENT FE SATURATION 4.93 % (20-55)
[2023-10-19 18:29] VITALS: BP 162/57; PULSE 92
== END 2023-10-19 18:28 | disposition home or self-care (01) ==
LOC: MW.ED 15:09
DX: J44.1 Chronic obstructive pulmonary disease with (acute) exacerbation (principal); J90 Pleural effusion, not elsewhere classified; R79.89 Other specified abnormal findings of blood chemistry; D50.8 Other iron deficiency anemias; I11.0 Hypertensive heart disease with heart failure; I50.9 Heart failure, unspecified; E78.00 Pure hypercholesterolemia, unspecified; E03.9 Hypothyroidism, unspecified; Z87.891 Personal history of nicotine dependence; Z79.899 Other long term (current) drug therapy; Z88.4 Allergy status to anesthetic agent; Z91.012 Allergy to eggs; Z91.011 Allergy to milk products; Z91.018 Allergy to other foods; Z91.048 Other nonmedicinal substance allergy status; Z88.8 Allergy status to other drugs, medicaments and biological substances; Z75.8 Other problems related to medical facilities and other health care
CPT/HCPCS: 36415; 71046; 71046-26; 80053; 82728; 83550; 83690; 83735; 83880; 84484; 85025; 85610; 85730; 93005; 93010; 94640; 99283; 99285; J7620-GY

== ENCOUNTER 2024-10-25 13:32 | Emergency (ER) | payer MEDICARE, BC ==
[2024-10-25] MEDS ORDERED: Sodium Chloride 0.9% 10 ML Syringe FLUSH PRN (15:36)
[2024-10-25] MEDS ORDERED: Sodium Chloride 0.9% 2.5 ML Syringe FLUSH PRN (15:36)
[2024-10-25] MEDS ORDERED: Sodium Chloride 0.9% 20 ML SDV IV PRN (15:36)
[2024-10-25] MEDS: Sodium Chloride 0.9% 1,000 ML IV ONE (16:07)
[2024-10-25 16:10] LABS: BASOPHILS ABSOLUTE AUTO 0.04 K/uL (0.00-0.20); BASOPHILS PERCENT AUTO 0.4 % (0.0-1.0); EOSINOPHILS ABSOLUTE AUTO 0.25 K/uL (0.00-0.45); EOSINOPHILS PERCENT AUTO 2.6 % (0.0-6.0); HEMATOCRIT 34.9 % (37.0-47.0); HEMOGLOBIN 11.5 g/dL (12.0-16.0); IMMATURE GRAN ABSOLUTE AUTO 0.05 K/uL (0.00-0.05); IMMATURE GRAN PERCENT AUTO 0.5 % (0.0-0.4); LYMPHOCYTES ABSOLUTE AUTO 1.78 K/uL (1.00-4.80); LYMPHOCYTES PERCENT AUTO 18.8 % (24.0-44.0); MEAN CORPUSCULAR HEMOGLOBIN 31.9 pg (28.0-32.0); MEAN CORPUSCULAR VOLUME 96.9 fL (83.0-99.0); MEAN PLATELET VOLUME 11.7 fL (9.4-12.3); MONOCYTES ABSOLUTE AUTO 0.92 K/uL (0.00-0.80); MONOCYTES PERCENT AUTO 9.7 % (0.0-8.0); NEUTROPHILS ABSOLUTE AUTO 6.41 K/uL (1.80-7.70); NRBC ABSOLUTE 0.03 K/uL (0.00-0.02); NRBC PERCENT 0.3 /100WBC (0.0-0.2); PLATELET COUNT,PLT 353 K/uL (150-400); WHITE BLOOD CELL COUNT,WBC 9.45 K/uL (3.9-11.3)
[2024-10-25 16:37] LABS: A/G RATIO 1.1 (0.9-1.6); ALBUMIN 3.7 g/dL (3.4-5.0); BILIRUBIN TOTAL 0.7 mg/dL (0.2-1.0); CALCIUM 8.9 mg/dL (8.5-10.1); CARBON DIOXIDE,CO2 27.3 mmol/L (21.0-32.0); CREATININE 1.1 mg/dL (0.6-1.0); EST CRCL DRUG DOSING (CG) 41.6 mL/min; MAGNESIUM 2.1 mg/dL (1.8-2.4); POTASSIUM,K 3.8 mmol/L (3.5-5.1); PROTEIN TOTAL,TP 7.1 g/dL (6.4-8.2)
[2024-10-25 16:41] LABS: LACTIC ACID 0.9 mmol/L (0.4-2.0)
[2024-10-25 16:52] LABS: CORONAVIRUS COVID-19 NAA NEGATIVE (NEGATIVE); INFLUENZA A NAA NEGATIVE (NEGATIVE); INFLUENZA B NAA NEGATIVE (NEGATIVE)
[2024-10-25] MEDS: Iopamidol 755 Mg/ML 100 ML Bottle IVPUSH ONE (17:50)
[2024-10-25] MEDS: Ondansetron 4 MG Tab.DIS PO ONE (19:18)
[2024-10-25 20:33] VITALS: BP 125/66; PULSE 89
[2024-10-30 09:08] LABS: NOROVIRUS 1 BY PCR Not Detected; NOROVIRUS 2 BY PCR Not Detected
== END 2024-10-25 20:30 | disposition home or self-care (01) ==
LOC: MW.ED 13:32
DX: R19.7 Diarrhea, unspecified (principal); Z90.49 Acquired absence of other specified parts of digestive tract; I11.0 Hypertensive heart disease with heart failure; E50.9 Vitamin A deficiency, unspecified; J44.89 Other specified chronic obstructive pulmonary disease; E03.9 Hypothyroidism, unspecified; Z79.899 Other long term (current) drug therapy; Z79.890 Hormone replacement therapy; Z91.048 Other nonmedicinal substance allergy status; Z91.018 Allergy to other foods; Z88.8 Allergy status to other drugs, medicaments and biological substances; Z91.011 Allergy to milk products; Z91.012 Allergy to eggs
CPT/HCPCS: 0240U; 36415; 74177; 80053; 83605; 83630; 83735; 85025; 87045; 87046; 87324; 87449; 87798; 87899; 96360; 99284; A9270; J7030; Q9967

== ENCOUNTER 2024-10-27 18:00 | Emergency (ER) | payer MEDICARE, BC ==
[2024-10-27 18:24] VITALS: BP 130/60; PULSE 95
[2024-10-27] MEDS ORDERED: Sodium Chloride 0.9% 20 ML SDV IV PRN (20:12)
[2024-10-27] MEDS: Sodium Chloride 0.9% 1,000 ML IV STA (20:20)
[2024-10-27 20:30] LABS: BASOPHILS ABSOLUTE AUTO 0.04 K/uL (0.00-0.20); BASOPHILS PERCENT AUTO 0.5 % (0.0-1.0); EOSINOPHILS ABSOLUTE AUTO 0.15 K/uL (0.00-0.45); HEMATOCRIT 31.7 % (37.0-47.0); HEMOGLOBIN 10.3 g/dL (12.0-16.0); IMMATURE GRAN ABSOLUTE AUTO 0.04 K/uL (0.00-0.05); IMMATURE GRAN PERCENT AUTO 0.5 % (0.0-0.4); LYMPHOCYTES ABSOLUTE AUTO 1.65 K/uL (1.00-4.80); LYMPHOCYTES PERCENT AUTO 22.4 % (24.0-44.0); MEAN CORPUSCULAR HEMOGLOBIN 31.5 pg (28.0-32.0); MEAN CORPUSCULAR HGB CONC 32.5 g/dL (32.0-36.0); MEAN CORPUSCULAR VOLUME 96.9 fL (83.0-99.0); MEAN PLATELET VOLUME 11.1 fL (9.4-12.3); MONOCYTES ABSOLUTE AUTO 1.02 K/uL (0.00-0.80); MONOCYTES PERCENT AUTO 13.8 % (0.0-8.0); NEUTROPHILS ABSOLUTE AUTO 4.47 K/uL (1.80-7.70); NEUTROPHILS PERCENT AUTO 60.8 % (41.0-71.0); NRBC ABSOLUTE 0.03 K/uL (0.00-0.02); NRBC PERCENT 0.4 /100WBC (0.0-0.2); PLATELET COUNT,PLT 316 K/uL (150-400); RED BLOOD CELL COUNT 3.27 M/uL (4.10-5.30); WHITE BLOOD CELL COUNT,WBC 7.37 K/uL (3.9-11.3)
[2024-10-27] MEDS: Ciprofloxacin in D5W 400 MG in Premix Bag 1 BAG IV SCH (20:30)
[2024-10-27] MEDS: metroNIDAZOLE/Normal Saline 500 MG in Premix Bag 1 BAG IV ONE (20:43)
[2024-10-27] MEDS: Sodium Chloride 0.9% 2.5 ML Syringe FLUSH PRN (20:44)
[2024-10-27] MEDS: Sodium Chloride 0.9% 10 ML Syringe FLUSH PRN (20:44)
[2024-10-27 20:52] LABS: ALBUMIN 3.3 g/dL (3.4-5.0); BILIRUBIN TOTAL 0.8 mg/dL (0.2-1.0); CALCIUM 8.1 mg/dL (8.5-10.1); CARBON DIOXIDE,CO2 27.6 mmol/L (21.0-32.0); CREATININE 1.1 mg/dL (0.6-1.0); EST CRCL DRUG DOSING (CG) 41.6 mL/min; POTASSIUM,K 3.6 mmol/L (3.5-5.1); PROTEIN TOTAL,TP 6.5 g/dL (6.4-8.2)
== END 2024-10-27 22:00 | disposition home or self-care (01) ==
LOC: MW.ED 18:00
DX: A09 Infectious gastroenteritis and colitis, unspecified (principal); Z90.49 Acquired absence of other specified parts of digestive tract; I11.0 Hypertensive heart disease with heart failure; I50.9 Heart failure, unspecified; E78.00 Pure hypercholesterolemia, unspecified; J44.89 Other specified chronic obstructive pulmonary disease; Z79.899 Other long term (current) drug therapy; Z91.018 Allergy to other foods; Z91.048 Other nonmedicinal substance allergy status; Z91.011 Allergy to milk products; Z91.012 Allergy to eggs; Z88.8 Allergy status to other drugs, medicaments and biological substances
CPT/HCPCS: 36415; 80053; 83690; 85025; 87324; 96365; 96368; 99284; J0744; J1836; J7030

== ENCOUNTER 2024-11-05 02:51 | Inpatient (IN) | payer MEDICARE, BC ==
[2024-11-05] MEDS ORDERED: Sodium Chloride 0.9% 20 ML SDV IV PRN (02:59)
[2024-11-05] MEDS ORDERED: Sodium Chloride 0.9% 2.5 ML Syringe FLUSH PRN ×2 (02:59→09:24)
[2024-11-05 03:15] LABS: BASOPHILS ABSOLUTE AUTO 0.08 K/uL (0.00-0.20); BASOPHILS PERCENT AUTO 0.5 % (0.0-1.0); EOSINOPHILS ABSOLUTE AUTO 0.23 K/uL (0.00-0.45); EOSINOPHILS PERCENT AUTO 1.5 % (0.0-6.0); HEMATOCRIT 35.1 % (37.0-47.0); HEMOGLOBIN 11.1 g/dL (12.0-16.0); IMMATURE GRAN ABSOLUTE AUTO 0.11 K/uL (0.00-0.05); IMMATURE GRAN PERCENT AUTO 0.7 % (0.0-0.4); LYMPHOCYTES ABSOLUTE AUTO 0.85 K/uL (1.00-4.80); LYMPHOCYTES PERCENT AUTO 5.6 % (24.0-44.0); MEAN CORPUSCULAR HEMOGLOBIN 31.5 pg (28.0-32.0); MEAN CORPUSCULAR HGB CONC 31.6 g/dL (32.0-36.0); MEAN CORPUSCULAR VOLUME 99.7 fL (83.0-99.0); MONOCYTES ABSOLUTE AUTO 1.03 K/uL (0.00-0.80); MONOCYTES PERCENT AUTO 6.8 % (0.0-8.0); NEUTROPHILS ABSOLUTE AUTO 12.79 K/uL (1.80-7.70); NEUTROPHILS PERCENT AUTO 84.9 % (41.0-71.0); PLATELET COUNT,PLT 359 K/uL (150-400); RED BLOOD CELL COUNT 3.52 M/uL (4.10-5.30); WHITE BLOOD CELL COUNT,WBC 15.09 K/uL (3.9-11.3)
[2024-11-05] MEDS: Albuterol/Ipratropium 3.0-0.5 MG/3 ML Neb Soln NEB ONE (03:15)
[2024-11-05] MEDS: Morphine 4 MG/ML Syringe IVPUSH ONE (03:16)
[2024-11-05] MEDS: Sodium Chloride 0.9% 10 ML Syringe FLUSH PRN (03:16)
[2024-11-05 03:33] LABS: INR 1.09 (0.86-1.11)
[2024-11-05] MEDS: Iopamidol 755 MG/ML 500 ML Multipack Bottle IVPUSH ONE (03:44)
[2024-11-05 03:45] LABS: CALCIUM 9.1 mg/dL (8.5-10.1); CARBON DIOXIDE,CO2 27.3 mmol/L (21.0-32.0); CREATININE 1.2 mg/dL (0.6-1.0); EST CRCL DRUG DOSING (CG) 38.13 mL/min; POTASSIUM,K 4.2 mmol/L (3.5-5.1)
[2024-11-05] MEDS: Albuterol 0.083% 2.5 MG/3 ML Neb Soln NEB ONE (04:06)
[2024-11-05] MEDS: methylPREDNISolone Sodium Succinate 125 MG/2 ML SDV IVPUSH ONE (04:46)
[2024-11-05 05:53] LABS: APPEARANCE,URINE CLEAR; BILIRUBIN,URINE NEGATIVE (NEGATIVE); COLOR,URINE YELLOW; GLUCOSE,URINE NEGATIVE (NEGATIVE); KETONES,URINE NEGATIVE (NEGATIVE); LEUKOCYTE ESTERASE,URINE NEGATIVE (NEGATIVE); NITRITE,URINE NEGATIVE (NEGATIVE); OCCULT BLOOD,URINE TRACE-INTACT (NEGATIVE); PH,URINE 6.5 (5.0-8.0); PROTEIN,URINE NEGATIVE (NEGATIVE); UROBILINOGEN,URINE 0.2 EU/dL (<2.0)
[2024-11-05 06:01] LABS: BACTERIA,URINE RARE (NEGATIVE); EPITHELIAL CELLS,URINE FEW (NONE-FEW); RBC,URINE 0-2 (0-2/HPF); WBC,URINE 0-2 (0-5/HPF)
[2024-11-05] MEDS: Albuterol/Ipratropium 3.0-0.5 MG/3 ML Neb Soln NEB SCH (06:12)
[2024-11-05 06:26] LABS: BASOPHILS ABSOLUTE AUTO 0.05 K/uL (0.00-0.20); BASOPHILS PERCENT AUTO 0.3 % (0.0-1.0); EOSINOPHILS ABSOLUTE AUTO 0.05 K/uL (0.00-0.45); EOSINOPHILS PERCENT AUTO 0.3 % (0.0-6.0); HEMATOCRIT 33.9 % (37.0-47.0); HEMOGLOBIN 10.5 g/dL (12.0-16.0); IMMATURE GRAN ABSOLUTE AUTO 0.16 K/uL (0.00-0.05); IMMATURE GRAN PERCENT AUTO 0.9 % (0.0-0.4); LYMPHOCYTES PERCENT AUTO 4.2 % (24.0-44.0); MEAN CORPUSCULAR HEMOGLOBIN 31.3 pg (28.0-32.0); MEAN CORPUSCULAR VOLUME 101.2 fL (83.0-99.0); MEAN PLATELET VOLUME 11.4 fL (9.4-12.3); MONOCYTES ABSOLUTE AUTO 0.81 K/uL (0.00-0.80); MONOCYTES PERCENT AUTO 4.8 % (0.0-8.0); NEUTROPHILS ABSOLUTE AUTO 15.08 K/uL (1.80-7.70); NEUTROPHILS PERCENT AUTO 89.5 % (41.0-71.0); PLATELET COUNT,PLT 346 K/uL (150-400); RED BLOOD CELL COUNT 3.35 M/uL (4.10-5.30); WHITE BLOOD CELL COUNT,WBC 16.85 K/uL (3.9-11.3)
[2024-11-05 06:42] LABS: CALCIUM 9.1 mg/dL (8.5-10.1); CARBON DIOXIDE,CO2 24.6 mmol/L (21.0-32.0); CREATININE 1.2 mg/dL (0.6-1.0); EST CRCL DRUG DOSING (CG) 38.13 mL/min; POTASSIUM,K 3.8 mmol/L (3.5-5.1)
[2024-11-05] MEDS: methylPREDNISolone Sodium Succinate 40 MG/1 ML SDV IVPUSH SCH (09:01)
[2024-11-05] MEDS ORDERED: Sodium Chloride 0.9% 10 ML Syringe FLUSH PRN (09:24)
[2024-11-05 09:46] LABS: C-REACTIVE PROTEIN 0.34 mg/dL (<0.3)
[2024-11-05] MEDS: Enoxaparin 40 MG/0.4 ML Syringe SUBCUT SCH (10:36)
[2024-11-05] MEDS: Fluconazole 100 MG Tab PO SCH (10:37)
[2024-11-05] MEDS: Morphine 2 MG/ML SYRINGE IVPUSH PRN (10:51)
[2024-11-05] MEDS: Nystatin Susp 100,000 Unit/ML 5 ML UD Cup PO SCH (12:43)
[2024-11-05] MEDS: Fluconazole 100 MG Tab PO ONE (13:34)
[2024-11-05] MEDS: Latanoprost 0.005% Ophth Soln 2.5 ML Bottle EYEBOTH SCH (23:37)
[2024-11-05] MEDS: traMADol 50 MG Tab PO PRN (23:39)
[2024-11-05] MEDS: Melatonin 3 MG Tab PO PRN (23:39)
[2024-11-05] MEDS: Ondansetron 4 MG/2 ML SDV IVPUSH PRN (23:39)
[2024-11-06 05:59] LABS: BASOPHILS ABSOLUTE AUTO 0.01 K/uL (0.00-0.20); BASOPHILS PERCENT AUTO 0.1 % (0.0-1.0); HEMATOCRIT 31.3 % (37.0-47.0); IMMATURE GRAN ABSOLUTE AUTO 0.08 K/uL (0.00-0.05); IMMATURE GRAN PERCENT AUTO 0.5 % (0.0-0.4); LYMPHOCYTES ABSOLUTE AUTO 0.77 K/uL (1.00-4.80); MEAN CORPUSCULAR HEMOGLOBIN 32.1 pg (28.0-32.0); MEAN CORPUSCULAR HGB CONC 31.9 g/dL (32.0-36.0); MEAN CORPUSCULAR VOLUME 100.3 fL (83.0-99.0); MONOCYTES ABSOLUTE AUTO 1.06 K/uL (0.00-0.80); MONOCYTES PERCENT AUTO 6.9 % (0.0-8.0); NEUTROPHILS ABSOLUTE AUTO 13.46 K/uL (1.80-7.70); NEUTROPHILS PERCENT AUTO 87.5 % (41.0-71.0); PLATELET COUNT,PLT 310 K/uL (150-400); RED BLOOD CELL COUNT 3.12 M/uL (4.10-5.30); WHITE BLOOD CELL COUNT,WBC 15.38 K/uL (3.9-11.3)
[2024-11-06 06:16] LABS: CALCIUM 8.8 mg/dL (8.5-10.1); CARBON DIOXIDE,CO2 25.5 mmol/L (21.0-32.0); CREATININE 1.3 mg/dL (0.6-1.0); EST CRCL DRUG DOSING (CG) 35.2 mL/min; MAGNESIUM 2.2 mg/dL (1.8-2.4); POTASSIUM,K 4.9 mmol/L (3.5-5.1)
[2024-11-06] MEDS: Fluconazole 100 MG Tab PO SCH (08:32)
[2024-11-06] MEDS: Pantoprazole 40 MG Tab.CR PO SCH (08:32)
[2024-11-06] MEDS: Levothyroxine 50 MCG Tab PO SCH (08:34)
[2024-11-06 09:07] LABS: BORDETELLA PARAPERT IS1001 Not Detected (Not Detected)
[2024-11-06] MEDS: Acetaminophen/HYDROcodone 325-5 MG Tab PO PRN (11:03)
[2024-11-07 05:38] LABS: BASOPHILS ABSOLUTE AUTO 0.01 K/uL (0.00-0.20); BASOPHILS PERCENT AUTO 0.1 % (0.0-1.0); HEMATOCRIT 29.2 % (37.0-47.0); HEMOGLOBIN 9.3 g/dL (12.0-16.0); IMMATURE GRAN ABSOLUTE AUTO 0.08 K/uL (0.00-0.05); IMMATURE GRAN PERCENT AUTO 0.9 % (0.0-0.4); LYMPHOCYTES ABSOLUTE AUTO 0.42 K/uL (1.00-4.80); LYMPHOCYTES PERCENT AUTO 4.8 % (24.0-44.0); MEAN CORPUSCULAR HEMOGLOBIN 31.3 pg (28.0-32.0); MEAN CORPUSCULAR HGB CONC 31.8 g/dL (32.0-36.0); MEAN CORPUSCULAR VOLUME 98.3 fL (83.0-99.0); MEAN PLATELET VOLUME 11.2 fL (9.4-12.3); MONOCYTES ABSOLUTE AUTO 0.56 K/uL (0.00-0.80); MONOCYTES PERCENT AUTO 6.3 % (0.0-8.0); NEUTROPHILS ABSOLUTE AUTO 7.77 K/uL (1.80-7.70); NEUTROPHILS PERCENT AUTO 87.9 % (41.0-71.0); NRBC ABSOLUTE 0.02 K/uL (0.00-0.02); NRBC PERCENT 0.2 /100WBC (0.0-0.2); PLATELET COUNT,PLT 289 K/uL (150-400); RED BLOOD CELL COUNT 2.97 M/uL (4.10-5.30); WHITE BLOOD CELL COUNT,WBC 8.84 K/uL (3.9-11.3)
[2024-11-07 05:59] LABS: CALCIUM 8.3 mg/dL (8.5-10.1); CARBON DIOXIDE,CO2 26.5 mmol/L (21.0-32.0); CREATININE 1.2 mg/dL (0.6-1.0); EST CRCL DRUG DOSING (CG) 38.13 mL/min; MAGNESIUM 2.3 mg/dL (1.8-2.4); POTASSIUM,K 4.8 mmol/L (3.5-5.1)
[2024-11-08 06:02] LABS: EOSINOPHILS ABSOLUTE AUTO 0.01 K/uL (0.00-0.45); EOSINOPHILS PERCENT AUTO 0.2 % (0.0-6.0); HEMATOCRIT 26.9 % (37.0-47.0); HEMOGLOBIN 8.8 g/dL (12.0-16.0); IMMATURE GRAN ABSOLUTE AUTO 0.05 K/uL (0.00-0.05); IMMATURE GRAN PERCENT AUTO 1.1 % (0.0-0.4); LYMPHOCYTES ABSOLUTE AUTO 0.34 K/uL (1.00-4.80); LYMPHOCYTES PERCENT AUTO 7.2 % (24.0-44.0); MEAN CORPUSCULAR HEMOGLOBIN 32.1 pg (28.0-32.0); MEAN CORPUSCULAR HGB CONC 32.7 g/dL (32.0-36.0); MEAN CORPUSCULAR VOLUME 98.2 fL (83.0-99.0); MEAN PLATELET VOLUME 11.2 fL (9.4-12.3); MONOCYTES ABSOLUTE AUTO 0.31 K/uL (0.00-0.80); MONOCYTES PERCENT AUTO 6.6 % (0.0-8.0); NEUTROPHILS PERCENT AUTO 84.9 % (41.0-71.0); NRBC ABSOLUTE 0.02 K/uL (0.00-0.02); NRBC PERCENT 0.4 /100WBC (0.0-0.2); PLATELET COUNT,PLT 298 K/uL (150-400); RED BLOOD CELL COUNT 2.74 M/uL (4.10-5.30); WHITE BLOOD CELL COUNT,WBC 4.71 K/uL (3.9-11.3)
[2024-11-08 06:26] LABS: CALCIUM 8.4 mg/dL (8.5-10.1); CREATININE 1.1 mg/dL (0.6-1.0); EST CRCL DRUG DOSING (CG) 41.6 mL/min
[2024-11-08 08:47] LABS: PERCENT FE SATURATION 18.69 % (20-55); TRANSFERRIN 138.6
[2024-11-08] MEDS: Sodium Ferric Gluconate Cmplex 125 MG in Sodium Chloride 0.9% 100 ML IV ONE (10:25)
[2024-11-08 18:11] LABS: BASOPHILS ABSOLUTE AUTO 0.01 K/uL (0.00-0.20); BASOPHILS PERCENT AUTO 0.2 % (0.0-1.0); HEMATOCRIT 27.8 % (37.0-47.0); HEMOGLOBIN 9.1 g/dL (12.0-16.0); IMMATURE GRAN PERCENT AUTO 1.7 % (0.0-0.4); LYMPHOCYTES PERCENT AUTO 5.1 % (24.0-44.0); MEAN CORPUSCULAR HEMOGLOBIN 32.2 pg (28.0-32.0); MEAN CORPUSCULAR HGB CONC 32.7 g/dL (32.0-36.0); MEAN CORPUSCULAR VOLUME 98.2 fL (83.0-99.0); MEAN PLATELET VOLUME 11.3 fL (9.4-12.3); MONOCYTES ABSOLUTE AUTO 0.59 K/uL (0.00-0.80); NEUTROPHILS ABSOLUTE AUTO 4.88 K/uL (1.80-7.70); NRBC ABSOLUTE 0.02 K/uL (0.00-0.02); NRBC PERCENT 0.3 /100WBC (0.0-0.2); PLATELET COUNT,PLT 371 K/uL (150-400); RED BLOOD CELL COUNT 2.83 M/uL (4.10-5.30); WHITE BLOOD CELL COUNT,WBC 5.88 K/uL (3.9-11.3)
[2024-11-08] MEDS: Pantoprazole 40 MG in Sodium Chloride 0.9% 10 ML IVPUSH SCH (21:09)
[2024-11-09 06:21] LABS: EOSINOPHILS ABSOLUTE AUTO 0.01 K/uL (0.00-0.45); EOSINOPHILS PERCENT AUTO 0.2 % (0.0-6.0); HEMATOCRIT 27.5 % (37.0-47.0); HEMOGLOBIN 8.9 g/dL (12.0-16.0); IMMATURE GRAN ABSOLUTE AUTO 0.11 K/uL (0.00-0.05); IMMATURE GRAN PERCENT AUTO 1.9 % (0.0-0.4); LYMPHOCYTES ABSOLUTE AUTO 0.35 K/uL (1.00-4.80); MEAN CORPUSCULAR HEMOGLOBIN 31.8 pg (28.0-32.0); MEAN CORPUSCULAR HGB CONC 32.4 g/dL (32.0-36.0); MEAN CORPUSCULAR VOLUME 98.2 fL (83.0-99.0); MEAN PLATELET VOLUME 11.6 fL (9.4-12.3); MONOCYTES ABSOLUTE AUTO 0.54 K/uL (0.00-0.80); MONOCYTES PERCENT AUTO 9.2 % (0.0-8.0); NEUTROPHILS ABSOLUTE AUTO 4.83 K/uL (1.80-7.70); NEUTROPHILS PERCENT AUTO 82.7 % (41.0-71.0); NRBC ABSOLUTE 0.02 K/uL (0.00-0.02); NRBC PERCENT 0.3 /100WBC (0.0-0.2); PLATELET COUNT,PLT 390 K/uL (150-400); WHITE BLOOD CELL COUNT,WBC 5.84 K/uL (3.9-11.3)
[2024-11-09 06:42] LABS: CALCIUM 7.8 mg/dL (8.5-10.1); CARBON DIOXIDE,CO2 24.5 mmol/L (21.0-32.0); CREATININE 1.1 mg/dL (0.6-1.0); EST CRCL DRUG DOSING (CG) 41.6 mL/min
[2024-11-09 17:07] LABS: BASOPHILS ABSOLUTE AUTO 0.02 K/uL (0.00-0.20); BASOPHILS PERCENT AUTO 0.3 % (0.0-1.0); EOSINOPHILS ABSOLUTE AUTO 0.01 K/uL (0.00-0.45); EOSINOPHILS PERCENT AUTO 0.1 % (0.0-6.0); HEMATOCRIT 28.5 % (37.0-47.0); HEMOGLOBIN 9.1 g/dL (12.0-16.0); IMMATURE GRAN ABSOLUTE AUTO 0.16 K/uL (0.00-0.05); IMMATURE GRAN PERCENT AUTO 2.1 % (0.0-0.4); LYMPHOCYTES ABSOLUTE AUTO 0.63 K/uL (1.00-4.80); LYMPHOCYTES PERCENT AUTO 8.4 % (24.0-44.0); MEAN CORPUSCULAR HEMOGLOBIN 31.8 pg (28.0-32.0); MEAN CORPUSCULAR HGB CONC 31.9 g/dL (32.0-36.0); MEAN CORPUSCULAR VOLUME 99.7 fL (83.0-99.0); MEAN PLATELET VOLUME 11.2 fL (9.4-12.3); MONOCYTES PERCENT AUTO 10.6 % (0.0-8.0); NEUTROPHILS PERCENT AUTO 78.5 % (41.0-71.0); NRBC ABSOLUTE 0.03 K/uL (0.00-0.02); NRBC PERCENT 0.4 /100WBC (0.0-0.2); PLATELET COUNT,PLT 412 K/uL (150-400); RED BLOOD CELL COUNT 2.86 M/uL (4.10-5.30); WHITE BLOOD CELL COUNT,WBC 7.52 K/uL (3.9-11.3)
[2024-11-10 06:02] LABS: BASOPHILS ABSOLUTE AUTO 0.02 K/uL (0.00-0.20); BASOPHILS PERCENT AUTO 0.2 % (0.0-1.0); EOSINOPHILS ABSOLUTE AUTO 0.01 K/uL (0.00-0.45); EOSINOPHILS PERCENT AUTO 0.1 % (0.0-6.0); HEMATOCRIT 25.8 % (37.0-47.0); HEMOGLOBIN 8.2 g/dL (12.0-16.0); IMMATURE GRAN ABSOLUTE AUTO 0.18 K/uL (0.00-0.05); IMMATURE GRAN PERCENT AUTO 2.1 % (0.0-0.4); LYMPHOCYTES ABSOLUTE AUTO 1.29 K/uL (1.00-4.80); LYMPHOCYTES PERCENT AUTO 15.3 % (24.0-44.0); MEAN CORPUSCULAR HEMOGLOBIN 31.7 pg (28.0-32.0); MEAN CORPUSCULAR HGB CONC 31.8 g/dL (32.0-36.0); MEAN CORPUSCULAR VOLUME 99.6 fL (83.0-99.0); MONOCYTES ABSOLUTE AUTO 0.89 K/uL (0.00-0.80); MONOCYTES PERCENT AUTO 10.6 % (0.0-8.0); NEUTROPHILS ABSOLUTE AUTO 6.02 K/uL (1.80-7.70); NEUTROPHILS PERCENT AUTO 71.7 % (41.0-71.0); NRBC ABSOLUTE 0.04 K/uL (0.00-0.02); NRBC PERCENT 0.5 /100WBC (0.0-0.2); PLATELET COUNT,PLT 392 K/uL (150-400); RED BLOOD CELL COUNT 2.59 M/uL (4.10-5.30); WHITE BLOOD CELL COUNT,WBC 8.41 K/uL (3.9-11.3)
[2024-11-10 06:23] LABS: CALCIUM 7.6 mg/dL (8.5-10.1); CARBON DIOXIDE,CO2 29.3 mmol/L (21.0-32.0); EST CRCL DRUG DOSING (CG) 45.76 mL/min
[2024-11-10] MEDS: diphenhydrAMINE 25 MG Cap PO ONE (10:31)
[2024-11-10] MEDS: Acetaminophen 325 MG Tab PO PRN (10:31)
[2024-11-10 15:28] LABS: HEMATOCRIT 30.2 % (37.0-47.0); HEMOGLOBIN 9.8 g/dL (12.0-16.0)
[2024-11-11] MEDS: Furosemide 20 MG/2 ML VIAL IVPUSH ONE (01:18)
[2024-11-11 05:27] LABS: HEMATOCRIT 32.9 % (37.0-47.0); HEMOGLOBIN 10.7 g/dL (12.0-16.0); MEAN CORPUSCULAR HEMOGLOBIN 31.5 pg (28.0-32.0); MEAN CORPUSCULAR HGB CONC 32.5 g/dL (32.0-36.0); MEAN CORPUSCULAR VOLUME 96.8 fL (83.0-99.0); MEAN PLATELET VOLUME 11.2 fL (9.4-12.3); NRBC ABSOLUTE 0.09 K/uL (0.00-0.02); NRBC PERCENT 0.4 /100WBC (0.0-0.2); PLATELET COUNT,PLT 471 K/uL (150-400); WHITE BLOOD CELL COUNT,WBC 21.41 K/uL (3.9-11.3)
[2024-11-11 05:45] LABS: LYMPHOCYTES ABSOLUTE MAN 1.93 K/uL (1.00-4.80); LYMPHOCYTES PERCENT MAN 9 % (24-44); MONOCYTES ABSOLUTE MAN 1.71 K/uL (0.00-0.80); MONOCYTES PERCENT MAN 8 % (0-8); SEG NEUTROPHILS ABSOLUTE MAN 17.77 K/uL (1.80-7.70); SEG NEUTROPHILS PERCENT MAN 83 % (41-71)
[2024-11-11 05:48] LABS: CALCIUM 7.3 mg/dL (8.5-10.1); CARBON DIOXIDE,CO2 25.7 mmol/L (21.0-32.0); CREATININE 1.1 mg/dL (0.6-1.0); EST CRCL DRUG DOSING (CG) 41.6 mL/min; POTASSIUM,K 4.3 mmol/L (3.5-5.1)
[2024-11-11] MEDS: Furosemide 40 MG/4 ML VIAL IVPUSH ONE (07:38)
[2024-11-11 08:09] LABS: LACTIC ACID 0.9 mmol/L (0.4-2.0)
[2024-11-11] MEDS: predniSONE 20 MG Tab PO SCH (09:12)
[2024-11-11 09:53] LABS: APPEARANCE,URINE CLEAR; BILIRUBIN,URINE NEGATIVE (NEGATIVE); COLOR,URINE YELLOW; GLUCOSE,URINE NEGATIVE (NEGATIVE); KETONES,URINE NEGATIVE (NEGATIVE); LEUKOCYTE ESTERASE,URINE NEGATIVE (NEGATIVE); NITRITE,URINE NEGATIVE (NEGATIVE); OCCULT BLOOD,URINE NEGATIVE (NEGATIVE); PH,URINE 5.5 (5.0-8.0); PROTEIN,URINE NEGATIVE (NEGATIVE); UROBILINOGEN,URINE 0.2 EU/dL (<2.0)
[2024-11-11] MEDS: cefTRIAXone 1 GM in Water For Injection, Sterile 10 ML IVPUSH SCH (15:40)
[2024-11-11] MEDS: Bisacodyl 10 MG Supp RECTAL ONE (15:40)
[2024-11-11] MEDS: Azithromycin 500 MG in Sodium Chloride 0.9% 250 ML IV SCH (15:41)
[2024-11-11] MEDS: Sennosides/Docusate Sodium 50-8.6 MG Tab PO SCH (15:43)
[2024-11-11] MEDS: Acidophilus with Citrus Pectin/L.acidophilus Tab PO SCH (15:43)
[2024-11-12 05:52] LABS: BASOPHILS ABSOLUTE AUTO 0.04 K/uL (0.00-0.20); BASOPHILS PERCENT AUTO 0.3 % (0.0-1.0); EOSINOPHILS ABSOLUTE AUTO 0.04 K/uL (0.00-0.45); EOSINOPHILS PERCENT AUTO 0.3 % (0.0-6.0); HEMATOCRIT 30.2 % (37.0-47.0); HEMOGLOBIN 9.8 g/dL (12.0-16.0); IMMATURE GRAN ABSOLUTE AUTO 0.32 K/uL (0.00-0.05); IMMATURE GRAN PERCENT AUTO 2.2 % (0.0-0.4); LYMPHOCYTES ABSOLUTE AUTO 0.85 K/uL (1.00-4.80); MEAN CORPUSCULAR HEMOGLOBIN 31.6 pg (28.0-32.0); MEAN CORPUSCULAR HGB CONC 32.5 g/dL (32.0-36.0); MEAN CORPUSCULAR VOLUME 97.4 fL (83.0-99.0); MEAN PLATELET VOLUME 10.7 fL (9.4-12.3); MONOCYTES ABSOLUTE AUTO 1.39 K/uL (0.00-0.80); MONOCYTES PERCENT AUTO 9.8 % (0.0-8.0); NEUTROPHILS ABSOLUTE AUTO 11.61 K/uL (1.80-7.70); NEUTROPHILS PERCENT AUTO 81.4 % (41.0-71.0); NRBC ABSOLUTE 0.04 K/uL (0.00-0.02); NRBC PERCENT 0.3 /100WBC (0.0-0.2); PLATELET COUNT,PLT 426 K/uL (150-400); WHITE BLOOD CELL COUNT,WBC 14.25 K/uL (3.9-11.3)
[2024-11-12 06:15] LABS: CALCIUM 7.3 mg/dL (8.5-10.1); EST CRCL DRUG DOSING (CG) 45.76 mL/min; POTASSIUM,K 4.1 mmol/L (3.5-5.1)
[2024-11-12 06:29] LABS: CARBON DIOXIDE,CO2 27.1 mmol/L (21.0-32.0)
[2024-11-12] MEDS: Furosemide 40 MG/4 ML VIAL IVPUSH STA (10:01)
[2024-11-12] MEDS: Polyethylene Glycol 3350 Powder 17 GM Packet PO SCH (10:01)
[2024-11-13 05:50] LABS: HEMATOCRIT 31.2 % (37.0-47.0); HEMOGLOBIN 10.1 g/dL (12.0-16.0); MEAN CORPUSCULAR HEMOGLOBIN 31.5 pg (28.0-32.0); MEAN CORPUSCULAR HGB CONC 32.4 g/dL (32.0-36.0); MEAN CORPUSCULAR VOLUME 97.2 fL (83.0-99.0); MEAN PLATELET VOLUME 10.8 fL (9.4-12.3); NRBC ABSOLUTE 0.07 K/uL (0.00-0.02); NRBC PERCENT 0.6 /100WBC (0.0-0.2); PLATELET COUNT,PLT 507 K/uL (150-400); RED BLOOD CELL COUNT 3.21 M/uL (4.10-5.30); WHITE BLOOD CELL COUNT,WBC 12.61 K/uL (3.9-11.3)
[2024-11-13 06:13] LABS: CALCIUM 7.7 mg/dL (8.5-10.1); CARBON DIOXIDE,CO2 28.3 mmol/L (21.0-32.0); CREATININE 1.1 mg/dL (0.6-1.0); EST CRCL DRUG DOSING (CG) 41.6 mL/min; MAGNESIUM 2.3 mg/dL (1.8-2.4); PHOSPHORUS 2.7 mg/dL (2.6-4.7); POTASSIUM,K 3.6 mmol/L (3.5-5.1)
[2024-11-13 06:59] LABS: BAND ABSOLUTE MAN 0.38; BAND PERCENT MAN 3 %; EOSINOPHILS ABSOLUTE MAN 0.13 K/uL (0.00-0.45); EOSINOPHILS PERCENT MAN 1 % (0-6); LYMPHOCYTES ABSOLUTE MAN 1.13 K/uL (1.00-4.80); LYMPHOCYTES PERCENT MAN 9 % (24-44); METAMYELOCYTE ABSOLUTE MAN 0.13; METAMYELOCYTE PERCENT MAN 1 %; MONOCYTES ABSOLUTE MAN 1.13 K/uL (0.00-0.80); MONOCYTES PERCENT MAN 9 % (0-8); SEG NEUTROPHILS ABSOLUTE MAN 9.71 K/uL (1.80-7.70); SEG NEUTROPHILS PERCENT MAN 77 % (41-71)
[2024-11-13] MEDS: Bisacodyl 10 MG Supp RECTAL ONE (11:00)
[2024-11-13 13:59] VITALS: BP 132/60; PULSE 88
[2024-11-13] MEDS: Azithromycin 250 MG Tab PO ONE (15:41)
[2024-11-13] MEDS: Cefdinir 300 MG Cap PO ONE (15:41)
== END 2024-11-13 16:00 | disposition home or self-care (01) | DRG 189 ==
LOC: MW.ED 02:51 → MW.MS 04:46
PROVIDERS: ADMIT Internal Medicine; ATTEND Internal Medicine
PROC: 5A0935A Assistance with Respiratory Ventilation, Less than 24 Consecutive Hours, High Flow/Velocity Cannula (ICD-10-PCS; principal; 2024-11-05)
PROC: 30233N1 Transfusion of Nonautologous Red Blood Cells into Peripheral Vein, Percutaneous Approach (ICD-10-PCS; 2024-11-05)
DX: J96.01 Acute respiratory failure with hypoxia (principal); J18.9 Pneumonia, unspecified organism; J44.1 Chronic obstructive pulmonary disease with (acute) exacerbation; B37.0 Candidal stomatitis; B37.81 Candidal esophagitis; J44.0 Chronic obstructive pulmonary disease with (acute) lower respiratory infection; I10 Essential (primary) hypertension; Z91.018 Allergy to other foods; Z91.048 Other nonmedicinal substance allergy status; Z91.012 Allergy to eggs; E78.5 Hyperlipidemia, unspecified; Z79.890 Hormone replacement therapy; H91.90 Unspecified hearing loss, unspecified ear; I11.0 Hypertensive heart disease with heart failure; I50.9 Heart failure, unspecified; D50.9 Iron deficiency anemia, unspecified; K29.70 Gastritis, unspecified, without bleeding; H54.7 Unspecified visual loss; E78.00 Pure hypercholesterolemia, unspecified; G43.909 Migraine, unspecified, not intractable, without status migrainosus; E03.9 Hypothyroidism, unspecified; Z91.011 Allergy to milk products; Z90.49 Acquired absence of other specified parts of digestive tract; Z98.49 Cataract extraction status, unspecified eye; Z79.899 Other long term (current) drug therapy; Z98.51 Tubal ligation status; Z88.8 Allergy status to other drugs, medicaments and biological substances; Z98.890 Other specified postprocedural states
CPT/HCPCS: 36415; 71045; 71275; 80048; 81001; 83880; 84484 ×2; 85025; 85610; 87428; 93005; 96374; 99285; A9270 ×2; J2270; Q9967; 36430; 71250; 71250-26; 74019; 74019-26; 74176; 74176-26; 81003; 82272; 82728; 83550; 83605; 83690; 83735; 84100; 85014; 85018; 85652; 86140; 86156; 86850; 86900; 86901; 86902; 86920; 86921; 86922; 87486; 87581; 87633; 93010; 93306; 94640; 99222; 99231; 99232; 99238; J0456; J0696; J1650; J1938; J2405; J2470; J2916; J2919; J7050; P9016

== ENCOUNTER 2024-12-01 09:09 | Emergency (ER) | payer MEDICARE, BC ==
[2024-12-01] MEDS ORDERED: Sodium Chloride 0.9% 2.5 ML Syringe FLUSH PRN (09:23)
[2024-12-01] MEDS ORDERED: Sodium Chloride 0.9% 10 ML Syringe FLUSH PRN (09:23)
[2024-12-01 09:32] LABS: BASOPHILS ABSOLUTE AUTO 0.02 K/uL (0.00-0.20); BASOPHILS PERCENT AUTO 0.4 % (0.0-1.0); EOSINOPHILS ABSOLUTE AUTO 0.19 K/uL (0.00-0.45); EOSINOPHILS PERCENT AUTO 3.3 % (0.0-6.0); HEMATOCRIT 29.6 % (37.0-47.0); HEMOGLOBIN 9.5 g/dL (12.0-16.0); IMMATURE GRAN ABSOLUTE AUTO 0.11 K/uL (0.00-0.05); IMMATURE GRAN PERCENT AUTO 1.9 % (0.0-0.4); LYMPHOCYTES ABSOLUTE AUTO 1.21 K/uL (1.00-4.80); LYMPHOCYTES PERCENT AUTO 21.3 % (24.0-44.0); MEAN CORPUSCULAR HEMOGLOBIN 31.4 pg (28.0-32.0); MEAN CORPUSCULAR HGB CONC 32.1 g/dL (32.0-36.0); MEAN CORPUSCULAR VOLUME 97.7 fL (83.0-99.0); MEAN PLATELET VOLUME 10.7 fL (9.4-12.3); MONOCYTES ABSOLUTE AUTO 0.52 K/uL (0.00-0.80); MONOCYTES PERCENT AUTO 9.1 % (0.0-8.0); NEUTROPHILS ABSOLUTE AUTO 3.64 K/uL (1.80-7.70); NRBC ABSOLUTE 0.03 K/uL (0.00-0.02); NRBC PERCENT 0.5 /100WBC (0.0-0.2); PLATELET COUNT,PLT 328 K/uL (150-400); RED BLOOD CELL COUNT 3.03 M/uL (4.10-5.30); WHITE BLOOD CELL COUNT,WBC 5.69 K/uL (3.9-11.3)
[2024-12-01 09:59] LABS: A/G RATIO 0.7 (0.9-1.6); ALBUMIN 2.7 g/dL (3.4-5.0); BILIRUBIN TOTAL 0.4 mg/dL (0.2-1.0); CALCIUM 8.4 mg/dL (8.5-10.1); CARBON DIOXIDE,CO2 26.7 mmol/L (21.0-32.0); EST CRCL DRUG DOSING (CG) 45.76 mL/min; PROTEIN TOTAL,TP 6.4 g/dL (6.4-8.2)
[2024-12-01 11:57] VITALS: BP 139/65; PULSE 88
== END 2024-12-01 11:57 | disposition home or self-care (01) ==
LOC: MW.ED 09:09
DX: R06.02 Shortness of breath (principal); R07.9 Chest pain, unspecified; I11.0 Hypertensive heart disease with heart failure; I50.9 Heart failure, unspecified; J44.89 Other specified chronic obstructive pulmonary disease; E03.9 Hypothyroidism, unspecified; Z90.49 Acquired absence of other specified parts of digestive tract; Z88.4 Allergy status to anesthetic agent; Z88.8 Allergy status to other drugs, medicaments and biological substances; Z91.011 Allergy to milk products; Z91.018 Allergy to other foods; Z91.048 Other nonmedicinal substance allergy status; Z79.51 Long term (current) use of inhaled steroids; Z79.890 Hormone replacement therapy; Z79.899 Other long term (current) drug therapy
CPT/HCPCS: 36415; 71045; 71045-26; 80053; 83880; 84484; 85025; 93005; 93010; 99283; 99285